=== PATIENT | female | born 1990 | race Caucasian/White ===

== ENCOUNTER 2023-06-13 13:15 | Emergency (ER) | payer BC ==
--- OUTSIDE RECORDS SUMMARY | 2023-06-13 13:19 | XMS REPORT | Continuity of Care Document ---
:1990 Author Organization [facility] t Address [address] [place] [address]. [address] [place] [address] Care Team Providers Name Role Phone MOLLY NIEVES Primary Care Physician Unavailable Molly Nieves Attending Clinician Unavailable DEVAUGHN Attending Clinician Unavailable KAYLENE OSORIO Attending Clinician Unavailable Disha Rush PA-C Attending Clinician Kaylene Osorio MD Attending Clinician DISHA RUSH Attending Clinician Unavailable Doctor Unassigned, [place] Attending Clinician Unavailable Neris Crawford Attending Clinician NERIS AGUILAR Attending Clinician Unavailable Calli_Farzana Attending Clinician Unavailable DEVAUGHN Admitting Clinician Unavailable Jocelyn Admitting Clinician Unavailable Payers Payer Name Policy Type Policy Number Effective Date Expiration Date S chris Blue Cross Blue 6 [id number] 2021 [facility] 00:00:00 [facility] [employer] - [id number] [employer] (PPO) [employer] OF [place] - OUT [id number] 2021 OF STATE 00:00:00 [place] [employer] [id number] ADMINISTRATION - [employer] [facility] - [facility] (PPO) Problems Condition Condition Condition Status Onset Resolution Last Treating Co mments Source Name Details Category Date Date Treatment Clinician Date Disorder Disorder Problem Active [place] of 11-30 da menstruati Menstruati 00:00: Me dical on on 00 Group [id number] Essential Problem Comm on (primary) Spirit hypertensi - [facility] on [facility] [id number] Current Problem Common moderate Spirit episode of - [facility] major [facility] disorder Medical without Center prior episode [id number] Adult BMI Problem Com mon 34.0-34.9 Spirit kg/sq m [facility] [id number] Constipati Problem Com mon on, Spirit unspecifie - CHI d constipati [facility] [id number] Insomnia, Problem Com mon unspecifie Spirit d type [facility] [id number] Anxiety Problem Common [facility] [id number] Vitamin D Problem Comm on deficiency [facility] [id number] Vitamin Problem Commo n B12 [facility] deficiency [facility] [id number] Iron Problem Common deficiency Spirit anemia, - CHI unspecifie [facility] iron [facility] deficiency Medica l anemia Center type No known No known Disease Unive rs active active ity of problems problems [facility] Allergies, Adverse Reactions, Alerts Allergy Allergy Status Severity Reaction(s) Onset Inactive Treating Comm ents Source Name Type Date Date Clinician NO KNOWN Drug Active Univers ALLERGIE Class ity of S [facility] Social History Social Habit Start Date Stop Date Quantity Comments Source History of Common Spirit - Tobacco Use [facility] Sex Assigned At Common Sp teena - [facility] Exposure to Not sure University of SARS-CoV-2 [facility] (event) Branch Tobacco use and 2021-11-25 2021-11-25 Never used Universit y of exposure 00:00:00 00:00:00 [facility] Alcohol intake 2021-11-25 2021-11-25 Current drinker Unive rsity of 00:00:00 00:00:00 of alcohol [facility] (finding) [place] Smoking Status Start Date Stop Date Source Never Smoker [facility] Spirit [facility] Medications Ordered Filled Start Stop Current Ordering Indication Dosage Frequency Signature Comments Components Source Medication Medication Date Date Medication? Clinician (SIG) Name Name Eszopiclone Eszopiclone 2021-10 No 1{table QD Eszopiclon 2 MG 2 MG 0-20 t_immed e 2 MG 00:00: iately_ 00 before_ bedtime } Eszopiclone Eszopiclone 2021-0 No 1{table QD Eszopiclon 2 MG 2 MG 7-20 t_immed e 2 MG 00:00: iately_ 00 before_ bedtime } Eszopiclone Eszopiclone 2021-0 No 1{table QD Eszopiclon 2 MG 2 MG 7-20 t_immed e 2 MG 00:00: iately_ 00 before_ bedtime } Eszopiclone Eszopiclone 2021-0 No 1{table QD Eszopiclon 2 MG 2 MG 7-19 t_immed e 2 MG 00:00: iately_ 00 before_ bedtime } Eszopiclone Eszopiclone 2021-0 No 1{table QD Eszopiclon 2 MG 2 MG 7-19 t_immed e 2 MG 00:00: iately_ 00 before_ bedtime } Eszopiclone Eszopiclone 2021-0 No 1{table QD Eszopiclon 2 MG 2 MG 7-19 t_immed e 2 MG 00:00: iately_ 00 before_ bedtime } Lexapro 20 Lexapro 20 2021-0 No 1{table QD Lexapro 20 MG MG 6-16 t} MG 00:00: 00 Eszopiclone Eszopiclone 2021-0 No 1{table QD Eszopiclon 2 MG 2 MG 6-16 t_immed e 2 MG 00:00: iately_ 00 before_ bedtime } metroNIDAZO 2021-0 Yes [id number] 500mg Take 1 Univers LE 500 mg 2-02 tablet by ity o f tablet 00:00: mouth [place] 00 every 12 Medical (twelve) Branch hours. propranoloL 2021-0 Yes Univer s 10 mg 1-28 ity of tablet 00:00: [place] 00 Medical Branch propranoloL 2021-0 Yes Univer s 10 mg 1-28 ity of tablet 00:00: [place] [facility] buPROPion 2021-0 Yes 150mg Take 150 Uni vers XL 150 mg 1-20 mg by ity of 24 hr 00:00: mouth [place] tablet 00 every Medical morning. Branch buPROPion Yes 150mg Take 150 Uni vers XL 150 mg 1-20 mg by ity of 24 hr 00:00: mouth [place] tablet 00 every Medical morning. Branch Eszopiclone Eszopiclone No 1{table QD 2 MG 2 MG -19 t_immed 00:00: iately_ 00 before_ bedtime } Eszopiclone Eszopiclone No 1{table QD Eszopiclon 2 MG 2 MG -19 t_immed e 2 MG 00:00: iately_ 00 before_ bedtime } Eszopiclone Eszopiclone No 1{table QD Eszopiclon 2 MG 2 MG -19 t_immed e 2 MG 00:00: iately_ 00 before_ bedtime } Eszopiclone Eszopiclone No 1{table QD Eszopiclon 2 MG 2 MG -19 t_immed e 2 MG 00:00: iately_ 00 before_ bedtime } Eszopiclone Eszopiclone 2020-10 No 1{table QD Eszopiclon 1 MG 1 MG 2-02 t_immed e 1 MG 00:00: iately_ 00 before_ bedtime } buPROPion buPROPion 2020-10 No 1{table QD buPROPion HCl ER (XL) HCl ER (XL) 1-03 t_in_th HCl ER 150 MG 150 MG 00:00: e_morni (XL) 150 00 ng} MG buPROPion buPROPion 2020-10 No 1{table QD buPROPion HCl ER (XL) HCl ER (XL) 1-03 t_in_th HCl ER 150 MG 150 MG 00:00: e_morni (XL) 150 00 ng} MG Kenalog Kenalog 2020-10 No 40mg Common (Triamcinol (Triamcinol 0-13 S pirit one) one) 00:00: - [facility] Kenalog Kenalog 2020-10 No 40mg Common (Triamcinol (Triamcinol 0-13 S pirit one) one) 00:00: - [facility] Kenalog Kenalog 2020-10 No 40mg Common (Triamcinol (Triamcinol 0-13 S pirit one) one) 00:00: - [facility] 00 [facility] Bayron Verma 2020-10 No 40mg Common (Triamcinol (Triamcinol 0-13 S pirit one) one) 00:00: - [facility] Bayron Verma 2020-10 No 40mg Common (Triamcinol (Triamcinol 0-13 S pirit one) one) 00:00: - [facility] Bayron Verma 2020-10 No 40mg Common (Triamcinol (Triamcinol 0-13 S pirit one) one) 00:00: - [facility] 00 [facility] Bayron Verma 2020-10 No 40mg Common (Triamcinol (Triamcinol 0-13 S pirit one) one) 00:00: - [facility] Bayron Verma 2020-10 No 40mg Common (Triamcinol (Triamcinol 0-13 S pirit one) one) 00:00: - [facility] 00 [facility] Propranolol Propranolol No 1{table QD Propranolo HCl 10 MG HCl 10 MG 07-17 t} l HCl 10 00:00: MG 00 Phentermine Phentermine 2020- No 1{capsu QD Phentermin HCl 37.5 MG HCl 37.5 MG 06-1116 le} e HCl 37.5 00:00: 00:00 MG 00 :00 Phentermine Phentermine 2020- No 1{capsu QD Phentermin HCl 37.5 MG HCl 37.5 MG 816 le} e HCl 37.5 00:00: 00:00 MG 00 :00 Linzess 72 Linzess 72 2020- No QD Linzess 72 MCG MCG 05-10 08-15 MCG 00:00: 00:00 00 :00 Lomaira Lomaira 2019- No Molly 1 tablet Common 07-1116 Nieves before Spirit 00:00: 00:00 meals - [facility]I 00 :00 [facility] Wellbutrin Wellbutrin 2019-0 Yes Molly 1 tablet Common XL XL 7-15 Nieves in the Spirit 00:00: morning - [facility] Vitamin B12 Vitamin B12 2019-0 No 1000ug Common (Cyanocobal (Cyanocobal 7-15 S pirit hernadez) hernadez) 00:00: - [facility] 00 [facility] Vitamin B12 Vitamin B12 2019-0 No 1000ug Common (Cyanocobal (Cyanocobal 7-15 S pirit hernadez) hernadez) 00:00: - [facility] 00 [facility] Vitamin B12 Vitamin B12 2019-0 No 1000ug Common (Cyanocobal (Cyanocobal 7-15 S pirit hernadez) hernadez) 00:00: - [facility] Vitamin B12 Vitamin B12 2019-0 No 1000ug Common (Cyanocobal (Cyanocobal 7-15 S pirit hernadez) hernadez) 00:00: - [facility] Vitamin B12 Vitamin B12 2019-0 No 1000ug Common (Cyanocobal (Cyanocobal 7-15 S pirit hernadez) hernadez) 00:00: - [facility] Vitamin B12 Vitamin B12 2019-0 No 1000ug Common (Cyanocobal (Cyanocobal 7-15 S pirit hernadez) hernadez) 00:00: - [facility] Vitamin B12 Vitamin B12 2019-0 No 1000ug Common (Cyanocobal (Cyanocobal 7-15 S pirit hernadez) hernadez) 00:00: - [facility] Vitamin B12 Vitamin B12 2019-0 No 1000ug Common (Cyanocobal (Cyanocobal 7-15 S pirit hernadez) hernadez) 00:00: - [facility] Vitamin B12 Vitamin B12 2019-0 No 1000ug Common (Cyanocobal (Cyanocobal 2-04 S pirit hernadez) hernadez) 00:00: - [facility] Vitamin B12 Vitamin B12 2019-0 No 1000ug Common (Cyanocobal (Cyanocobal 2-04 S pirit hernadez) hernadez) 00:00: - [facility] Vitamin B12 Vitamin B12 2019-0 No 1000ug Common (Cyanocobal (Cyanocobal 2-04 S pirit hernadez) hernadez) 00:00: - [facility] Vitamin B12 Vitamin B12 2019-0 No 1000ug Common (Cyanocobal (Cyanocobal 2-04 S pirit hernadez) hernadez) 00:00: - [facility] Vitamin B12 Vitamin B12 2019-0 No 1000ug Common (Cyanocobal (Cyanocobal 2-04 S pirit hernadez) hernadez) 00:00: - [facility] Vitamin B12 Vitamin B12 2019-0 No 1000ug Common (Cyanocobal (Cyanocobal 2-04 S pirit hernadez) hernadez) 00:00: - [facility] Vitamin B12 Vitamin B12 2019-0 No 1000ug Common (Cyanocobal (Cyanocobal 2-04 S pirit hernadez) hernadez) 00:00: - [facility] Vitamin B12 Vitamin B12 2019-0 No 1000ug Common (Cyanocobal (Cyanocobal 2-04 S pirit hernadez) hernadez) 00:00: - [facility] Kenalog Kenalog 2018- No 40mg Common (Triamcinol (Triamcinol 2-18 S pirit one) one) 00:00: - [facility] Kenalog Kenalog 2018- No 40mg Common (Triamcinol (Triamcinol 2-18 S pirit one) one) 00:00: - [facility] Kenalog Kenalog 2018- No 40mg Common (Triamcinol (Triamcinol 2-18 S pirit one) one) 00:00: - [facility] Kenalog Kenalog 2018-1 No 40mg Common (Triamcinol (Triamcinol 2-18 S pirit one) one) 00:00: - [facility] Kenalog Kenalog 2018- No 40mg Common (Triamcinol (Triamcinol 2-18 S pirit one) one) 00:00: - [facility] Kenalog Kenalog 2018- No 40mg Common (Triamcinol (Triamcinol 2-18 S pirit one) one) 00:00: - [facility] 00 [facility] Kenalog Kenalog 2018- No 40mg Common (Triamcinol (Triamcinol 2-18 S pirit one) one) 00:00: - [facility] 00 [facility] Kenalog Kenalog 2018-1 No 40mg Common (Triamcinol (Triamcinol 2-18 S pirit one) one) 00:00: - [facility] 00 [facility] xRocephin 1 xRocephin 1 2018-0 No 1g Common gm gm 8-23 Spirit 00:00: - [facility] xRocephin 1 xRocephin 1 2018-0 No 1g Common gm gm 8-23 Spirit 00:00: - [facility] xRocephin 1 xRocephin 1 2018-0 No 1g Common gm gm 8-23 Spirit 00:00: - [facility] xRocephin 1 xRocephin 1 2018-0 No 1g Common gm gm 8-23 Spirit 00:00: - [facility] xRocephin 1 xRocephin 1 2018-0 No 1g Common gm gm 8-23 Spirit 00:00: - [facility] xRocephin 1 xRocephin 1 2018-0 No 1g Common gm gm 8-23 Spirit 00:00: - [facility] xRocephin 1 xRocephin 1 2018-0 No 1g Common gm gm 8-23 Spirit 00:00: - [facility] xRocephin 1 xRocephin 1 2018-0 No 1g Common gm gm 8-23 Spirit 00:00: - [facility] Vitamin B12 Vitamin B12 2018-0 No 1000ug Common (Cyanocobal (Cyanocobal 8-13 S pirit hernadez) hernadez) 00:00: - [facility] Vitamin B12 Vitamin B12 2018-0 No 1000ug Common (Cyanocobal (Cyanocobal 8-13 S pirit hernadez) hernadez) 00:00: - [facility] Vitamin B12 Vitamin B12 2018-0 No 1000ug Common (Cyanocobal (Cyanocobal 8-13 S pirit hernadez) hernadez) 00:00: - [facility] Vitamin B12 Vitamin B12 2018-0 No 1000ug Common (Cyanocobal (Cyanocobal 8-13 S pirit hernadez) hernadez) 00:00: - [facility] Vitamin B12 Vitamin B12 2018-0 No 1000ug Common (Cyanocobal (Cyanocobal 8-13 S pirit hernadez) hernadez) 00:00: - [facility] Vitamin B12 Vitamin B12 2018-0 No 1000ug Common (Cyanocobal (Cyanocobal 8-13 S pirit hernadez) hernadez) 00:00: - [facility] Vitamin B12 Vitamin B12 2018-0 No 1000ug Common (Cyanocobal (Cyanocobal 8-13 S pirit hernadez) hernadez) 00:00: - [facility] Vitamin B12 Vitamin B12 2018-0 No 1000ug Common (Cyanocobal (Cyanocobal 8-13 S pirit hernadez) hernadez) 00:00: - [facility] 00 [facility] multivitami multivitami No multivitam [place] take one n take one in take da tablet once tablet once one tablet Medical a day a day once a day Group Magnesium Magnesium Yes Molly 1 tablet Common Nieves with a Spirit meal [facility] Vitamin D Vitamin D Yes Molly 1 tablet Common (Cholecalci (Cholecalci Nieves Spirit ferol) ferol) [facility] Tylenol Tylenol Yes Molly 1 tablet Com mon Nieves as needed Spirit [facility] Trulance 3 Trulance 3 No 1{table QD Trulance 3 MG MG t} MG Magnesium Magnesium No 1{table QD Magnesium 30 MG 30 MG t_with_ 30 MG a_meal} Doxycycline Doxycycline No Doxycyclin Hyclate 100 Hyclate 100 e Hyclate MG MG 100 MG Tylenol 325 Tylenol 325 No 1{table 6xD Tylenol MG MG t_as_ne 325 MG eded} Magnesium Magnesium No 1{table QD Magnesium 30 MG 30 MG t_with_ 30 MG a_meal} Doxycycline Doxycycline No Doxycyclin Hyclate 100 Hyclate 100 e Hyclate MG MG 100 MG Trulance 3 Trulance 3 No 1{table QD Trulance 3 MG MG t} MG Tylenol 325 Tylenol 325 No 1{table 6xD Tylenol MG MG t_as_ne 325 MG eded} Magnesium Magnesium No 1{table QD Magnesium 30 MG 30 MG t_with_ 30 MG a_meal} Propranolol Propranolol No 1{table QD Propranolo HCl 10 MG HCl 10 MG t} l HCl 10 MG Tylenol 325 Tylenol 325 No 1{table 6xD Tylenol MG MG t_as_ne 325 MG eded} Magnesium Magnesium No 1{table QD Magnesium 30 MG 30 MG t_with_ 30 MG a_meal} Trulance 3 Trulance 3 No 1{table QD Trulance 3 MG MG t} MG Propranolol Propranolol No 1{table QD Propranolo HCl 10 MG HCl 10 MG t} l HCl 10 MG Tylenol 325 Tylenol 325 No 1{table 6xD Tylenol MG MG t_as_ne 325 MG eded} Doxycycline Doxycycline No Doxycyclin Hyclate 100 Hyclate 100 e Hyclate MG MG 100 MG Propranolol Propranolol No Propranolo HCl 10 MG HCl 10 MG l HCl 10 MG Propranolol Propranolol No 1{table QD Propranolo HCl 10 MG HCl 10 MG t} l HCl 10 MG Magnesium Magnesium No 1{table QD Magnesium 30 MG 30 MG t_with_ 30 MG a_meal} Doxycycline Doxycycline No Doxycyclin Hyclate 100 Hyclate 100 e Hyclate MG MG 100 MG Trulance 3 Trulance 3 No 1{table QD Trulance 3 MG MG t} MG Tylenol 325 Tylenol 325 No 1{table 6xD Tylenol MG MG t_as_ne 325 MG eded} Propranolol Propranolol No Propranolo HCl 10 MG HCl 10 MG l HCl 10 MG Propranolol Propranolol No 1{table QD Propranolo HCl 10 MG HCl 10 MG t} l HCl 10 MG Magnesium Magnesium No 1{table QD Magnesium 30 MG 30 MG t_with_ 30 MG a_meal} Doxycycline Doxycycline No Doxycyclin Hyclate 100 Hyclate 100 e Hyclate MG MG 100 MG Trulance 3 Trulance 3 No 1{table QD Trulance 3 MG MG t} MG Tylenol 325 Tylenol 325 No 1{table 6xD Tylenol MG MG t_as_ne 325 MG eded} Propranolol Propranolol No Propranolo HCl 10 MG HCl 10 MG l HCl 10 MG Doxycycline Doxycycline No Doxycyclin Hyclate 100 Hyclate 100 e Hyclate MG MG 100 MG Trulance 3 Trulance 3 No 1{table QD Trulance 3 MG MG t} MG Magnesium Magnesium No 1{table QD Magnesium 30 MG 30 MG t_with_ 30 MG a_meal} Tylenol 325 Tylenol 325 No 1{table 6xD Tylenol MG MG t_as_ne 325 MG eded} buPROPion buPROPion No 1{table QD buPROPion HCl ER (XL) HCl ER (XL) t_in_th HCl ER 150 MG 150 MG e_morni (XL) 150 ng} MG buPROPion buPROPion No buPROPion HCl ER (XL) HCl ER (XL) HCl ER 150 MG 150 MG (XL) 150 MG Propranolol Propranolol No QD Propranolo HCl 10 MG HCl 10 MG l HCl 10 MG Doxycycline Doxycycline No Hyclate 100 Hyclate 100 MG MG Trulance 3 Trulance 3 No 1{table QD MG MG t} Tylenol 325 Tylenol 325 No 1{table 6xD MG MG t_as_ne eded} buPROPion buPROPion No 1{table QD HCl ER (XL) HCl ER (XL) t_in_th 150 MG 150 MG e_morni ng} Propranolol Propranolol No HCl 10 MG HCl 10 MG buPROPion buPROPion No HCl ER (XL) HCl ER (XL) 150 MG 150 MG Propranolol Propranolol No QD HCl 10 MG HCl 10 MG Magnesium Magnesium No 1{table QD 30 MG 30 MG t_with_ a_meal} Tylenol 325 Tylenol 325 No 1{table 6xD Tylenol MG MG t_as_ne 325 MG eded} buPROPion buPROPion No 1{table QD buPROPion HCl ER (XL) HCl ER (XL) t_in_th HCl ER 150 MG 150 MG e_morni (XL) 150 ng} MG Trulance 3 Trulance 3 No 1{table QD Trulance 3 MG MG t} MG Doxycycline Doxycycline No Doxycyclin Hyclate 100 Hyclate 100 e Hyclate MG MG 100 MG Propranolol Propranolol No Propranolo HCl 10 MG HCl 10 MG l HCl 10 MG buPROPion buPROPion No buPROPion HCl ER (XL) HCl ER (XL) HCl ER 150 MG 150 MG (XL) 150 MG Magnesium Magnesium No 1{table QD Magnesium 30 MG 30 MG t_with_ 30 MG a_meal} Magnesium Magnesium No 1{table QD Magnesium 30 MG 30 MG t_with_ 30 MG a_meal} Doxycycline Doxycycline No Doxycyclin Hyclate 100 Hyclate 100 e Hyclate MG MG 100 MG buPROPion buPROPion No 1{table QD buPROPion HCl ER (XL) HCl ER (XL) t_in_th HCl ER 300 MG 300 MG e_morni (XL) 300 ng} MG Trulance 3 Trulance 3 No 1{table QD Trulance 3 MG MG t} MG Tylenol 325 Tylenol 325 No 1{table 6xD Tylenol MG MG t_as_ne 325 MG eded} buPROPion buPROPion No buPROPion HCl ER (XL) HCl ER (XL) HCl ER 150 MG 150 MG (XL) 150 MG Propranolol Propranolol No Propranolo HCl 10 MG HCl 10 MG l HCl 10 MG Magnesium Magnesium No 1{table QD Magnesium 30 MG 30 MG t_with_ 30 MG a_meal} Doxycycline Doxycycline No Doxycyclin Hyclate 100 Hyclate 100 e Hyclate MG MG 100 MG buPROPion buPROPion No 1{table QD buPROPion HCl ER (XL) HCl ER (XL) t_in_th HCl ER 300 MG 300 MG e_morni (XL) 300 ng} MG Trulance 3 Trulance 3 No 1{table QD Trulance 3 MG MG t} MG Tylenol 325 Tylenol 325 No 1{table 6xD Tylenol MG MG t_as_ne 325 MG eded} buPROPion buPROPion No buPROPion HCl ER (XL) HCl ER (XL) HCl ER 150 MG 150 MG (XL) 150 MG Propranolol Propranolol No Propranolo HCl 10 MG HCl 10 MG l HCl 10 MG Tylenol 325 Tylenol 325 No 1{table 6xD Tylenol MG MG t_as_ne 325 MG eded} Propranolol Propranolol No Propranolo HCl 10 MG HCl 10 MG l HCl 10 MG buPROPion buPROPion No buPROPion HCl ER (XL) HCl ER (XL) HCl ER 150 MG 150 MG (XL) 150 MG Doxycycline Doxycycline No Doxycyclin Hyclate 100 Hyclate 100 e Hyclate MG MG 100 MG Propranolol Propranolol No QD Propranolo HCl 10 MG HCl 10 MG l HCl 10 MG buPROPion buPROPion No 1{table QD buPROPion HCl ER (XL) HCl ER (XL) t_in_th HCl ER 150 MG 150 MG e_morni (XL) 150 ng} MG Trulance 3 Trulance 3 No 1{table QD Trulance 3 MG MG t} MG Magnesium Magnesium No 1{table QD Magnesium 30 MG 30 MG t_with_ 30 MG a_meal} Tylenol 325 Tylenol 325 No 1{table 6xD Tylenol MG MG t_as_ne 325 MG eded} Propranolol Propranolol No Propranolo HCl 10 MG HCl 10 MG l HCl 10 MG Lexapro 20 Lexapro 20 No 1{table QD Lexapro 20 MG MG t} MG Magnesium Magnesium No 1{table QD Magnesium 30 MG 30 MG t_with_ 30 MG a_meal} buPROPion buPROPion No buPROPion HCl ER (XL) HCl ER (XL) HCl ER 150 MG 150 MG (XL) 150 MG Doxycycline Doxycycline No Doxycyclin Hyclate 100 Hyclate 100 e Hyclate MG MG 100 MG Propranolol Propranolol No QD Propranolo HCl 10 MG HCl 10 MG l HCl 10 MG buPROPion buPROPion No 1{table QD buPROPion HCl ER (XL) HCl ER (XL) t_in_th HCl ER 150 MG 150 MG e_morni (XL) 150 ng} MG Trulance 3 Trulance 3 No 1{table QD Trulance 3 MG MG t} MG Tylenol 325 Tylenol 325 No 1{table 6xD Tylenol MG MG t_as_ne 325 MG eded} Doxycycline Doxycycline No Doxycyclin Hyclate 100 Hyclate 100 e Hyclate MG MG 100 MG Trulance 3 Trulance 3 No 1{table QD Trulance 3 MG MG t} MG buPROPion buPROPion No buPROPion HCl ER (XL) HCl ER (XL) HCl ER 150 MG 150 MG (XL) 150 MG buPROPion buPROPion No 1{table QD buPROPion HCl ER (XL) HCl ER (XL) t_in_th HCl ER 150 MG 150 MG e_morni (XL) 150 ng} MG Propranolol Propranolol No Propranolo HCl 10 MG HCl 10 MG l HCl 10 MG Lexapro 20 Lexapro 20 No 1{table QD Lexapro 20 MG MG t} MG Magnesium Magnesium No 1{table QD Magnesium 30 MG 30 MG t_with_ 30 MG a_meal} Lexapro 20 Lexapro 20 No 1{table QD Lexapro 20 MG MG t} MG Tylenol 325 Tylenol 325 No 1{table 6xD Tylenol MG MG t_as_ne 325 MG eded} Doxycycline Doxycycline No Doxycyclin Hyclate 100 Hyclate 100 e Hyclate MG MG 100 MG Trulance 3 Trulance 3 No 1{table QD Trulance 3 MG MG t} MG buPROPion buPROPion No buPROPion HCl ER (XL) HCl ER (XL) HCl ER 150 MG 150 MG (XL) 150 MG buPROPion buPROPion No 1{table QD buPROPion HCl ER (XL) HCl ER (XL) t_in_th HCl ER 150 MG 150 MG e_morni (XL) 150 ng} MG Propranolol Propranolol No Propranolo HCl 10 MG HCl 10 MG l HCl 10 MG Lexapro 20 Lexapro 20 No 1{table QD Lexapro 20 MG MG t} MG Magnesium Magnesium No 1{table QD Magnesium 30 MG 30 MG t_with_ 30 MG a_meal} Lexapro 20 Lexapro 20 No 1{table QD Lexapro 20 MG MG t} MG Lexapro 20 Lexapro 20 No 1{table QD Lexapro 20 MG MG t} MG Tylenol 325 Tylenol 325 No 1{table 6xD Tylenol MG MG t_as_ne 325 MG eded} Magnesium Magnesium No 1{table QD Magnesium 30 MG 30 MG t_with_ 30 MG a_meal} buPROPion buPROPion No 1{table QD buPROPion HCl ER (XL) HCl ER (XL) t_in_th HCl ER 150 MG 150 MG e_morni (XL) 150 ng} MG Doxycycline Doxycycline No Doxycyclin Hyclate 100 Hyclate 100 e Hyclate MG MG 100 MG Trulance 3 Trulance 3 No 1{table QD Trulance 3 MG MG t} MG Vitamin D Vitamin D No 1{table QD Vitamin D (Cholecalci (Cholecalci t} (Cholecalc ferol) 1000 ferol) 1000 iferol) UNIT UNIT 1000 UNIT Wellbutrin Wellbutrin No 1{table QD Wellbutrin XL 300 MG XL 300 MG t_in_th XL 300 MG e_morni ng} Tylenol 325 Tylenol 325 No 1{table 6xD Tylenol MG MG t_as_ne 325 MG eded} Cefdinir Cefdinir No Cefdinir 300 MG 300 MG 300 MG Lomaira 8 Lomaira 8 No 1{table TID Lomaira 8 MG MG t_befor MG e_meals } Lactulose Lactulose No 15{ml} QD Lactulose 10 GM/15ML 10 GM/15ML 10 GM/15ML Magnesium Magnesium No 1{table QD Magnesium 30 MG 30 MG t_with_ 30 MG a_meal} Trulance 3 Trulance 3 No 1{table QD Trulance 3 MG MG t} MG Magnesium Magnesium No 1{table QD Magnesium 30 MG 30 MG t_with_ 30 MG a_meal} Doxycycline Doxycycline No Doxycyclin Hyclate 100 Hyclate 100 e Hyclate MG MG 100 MG Tylenol 325 Tylenol 325 No 1{table 6xD Tylenol MG MG t_as_ne 325 MG eded} Immunizations Ordered Immunization Filled Immunization Date Status Commen ts Source Name Name Bayron Verma 2021-08-07 [facility]olone[facility] 10:44:00 - [facility] Afluria Afluria 2021-08-07 [facility] 10:19[facility]00 [facility] Afluria Afluria 2021-08-07 [facility] Afluria Afluria 2021-08-07 [facility] 10:19[facility]00 [facility] Afluria Afluria 2021-08-07 [facility] 10:19[facility]00 [facility] Afluria Afluria 2021-08-07 [facility] 10:19[facility]00 [facility] Afluria Afluria 2021-08-07 [facility] Afluria Afluria 2021-08-07 [facility] Afluria Afluria 2021-08-07 [facility] 10:19[facility]00 [facility] Afluria Afluria 2021-08-07 [facility] Afluria Afluria 2021-08-07 [facility] Afluria Afluria 2021-08-07 [facility] Afluria Afluria 2021-08-07 [facility] Afluria Afluria 2021-08-07 [facility] Afluria Afluria 2019-07-11 Completed [facility] [facility] 11:47:00 - [facility] Afluria Afluria 2019-07-11 Completed [facility] 11:47[facility] Afluria Afluria 2019-07-11 Completed [facility] 11[facility]47[facility] Afluria Afluria 2019-07-11 Completed [facility] Afluria Afluria 2019-07-11 Completed [facility] Afluria Afluria 2019-07-11 Completed [facility] - [facility] Afluria Afluria 2019-07-11 Completed [facility] Afluria Afluria 2019-07-11 Completed [facility] - [facility] Afluria Afluria 2019-07-11 Completed [facility] Afluria Afluria 2019-07-11 Completed [facility] Afluria Afluria 2019-07-11 Completed [facility] - [facility] Afluria Afluria 2019-07-11 Completed [facility] Afluria Afluria 2019-07-11 Completed [facility] - [facility] Afluria Afluria 2019-07-11 Completed [facility] - [facility] Afluria Afluria 2019-07-11 Completed [facility] - [facility] Afluria Afluria 2019-07-11 Completed [facility] - [facility] Afluria Afluria 2019-07-11 Completed [facility] - [facility] Afluria Afluria 2019-07-11 Completed [facility] - [facility] Afluria Afluria 2019-07-11 Completed [facility] 00:: [facility] Vitamin B12 Vitamin B12 2019-05-09 Completed [facility] (Cyanocobalamin) (Cyanocobalamin) 10:: [facility] Vitamin B12 Vitamin B12 2019-05-09 Completed [facility] (Cyanocobalamin) (Cyanocobalamin) 10:: [facility] Vitamin B12 Vitamin B12 2019-05-09 Completed [facility] (Cyanocobalamin) (Cyanocobalamin) 10:: [facility] Vitamin B12 Vitamin B12 2019-05-09 Completed [facility] (Cyanocobalamin) (Cyanocobalamin) 10:: [facility] Vitamin B12 Vitamin B12 2019-05-09 Completed [facility] (Cyanocobalamin) (Cyanocobalamin) 10:: [facility] Vitamin B12 Vitamin B12 2019-05-09 Completed [facility] (Cyanocobalamin) (Cyanocobalamin) 10:: [facility] Vitamin B12 Vitamin B12 2018-11-29 Completed [facility] (Cyanocobalamin) (Cyanocobalamin) 10:: [facility] Vitamin B12 Vitamin B12 2018-11-29 Completed [facility] (Cyanocobalamin) (Cyanocobalamin) 10:: [facility] Vitamin B12 Vitamin B12 2018-11-29 Completed [facility] (Cyanocobalamin) (Cyanocobalamin) 10:: [facility] Vitamin B12 Vitamin B12 2018-11-29 Completed [facility] (Cyanocobalamin) (Cyanocobalamin) 10:: [facility] Vitamin B12 Vitamin B12 2018-11-29 Completed [facility] (Cyanocobalamin) (Cyanocobalamin) 10:: [facility] Vitamin B12 Vitamin B12 2018-11-29 Completed [facility] (Cyanocobalamin) (Cyanocobalamin) 10:: [facility] Kenalog Kenalog 2018-10-12 Completed [facility] (Triamcinolone) (Triamcinolone) 09:10:00 - [facility] 2018-10-12 [facility] (Triamcinolone) (Triamcinolone) 09:10:00 - I [facility] 2018-10-12 Completed [facility] (Triamcinolone) (Triamcinolone) 09:10:00 - I [facility] 2018-10-12 Completed [facility] (Triamcinolone) (Triamcinolone) 09:10:00 - I [facility] 2018-10-12 Completed [facility] (Triamcinolone) (Triamcinolone) 09:10:00 - [facility] 2018-10-12 Completed [facility] (Triamcinolone) (Triamcinolone) 09:10:00 - [facility] xRocephin 1 gm xRocephin 1 gm 2018-06-17 Completed [facility] 09:13:00 - [facility] xRocephin 1 gm xRocephin 1 gm 2018-06-17 Completed [facility] 09:13:00 - [facility] xRocephin 1 gm xRocephin 1 gm 2018-06-17 Completed [facility] 09:13:00 - [facility] xRocephin 1 gm xRocephin 1 gm 2018-06-17 Completed [facility] 09:13:00 - [facility] xRocephin 1 gm xRocephin 1 gm 2018-06-17 Completed [facility] 09:13:00 - [facility] xRocephin 1 gm xRocephin 1 gm 2018-06-17 Completed [facility] 09:13:00 [facility] Vitamin B12 Vitamin B12 2018-06-07 Completed [facility] (Cyanocobalamin) (Cyanocobalamin) 14:31:00 [facility] Vitamin B12 Vitamin B12 2018-06-07 Completed [facility] (Cyanocobalamin) (Cyanocobalamin) 14:31:00 [facility] Vitamin B12 Vitamin B12 2018-06-07 Completed [facility] (Cyanocobalamin) (Cyanocobalamin) 14:31:00 [facility] Vitamin B12 Vitamin B12 2018-06-07 Completed [facility] (Cyanocobalamin) (Cyanocobalamin) 14:31:00 [facility] Vitamin B12 Vitamin B12 2018-06-07 Completed [facility] (Cyanocobalamin) (Cyanocobalamin) 14:31:00 [facility] Vitamin B12 Vitamin B12 2018-06-07 Completed [facility] (Cyanocobalamin) (Cyanocobalamin) 14:31:00 [facility] Vital Signs Vital Name Observation Time Observation Value Comments Source height 2022-08-14 13:00:00 67.5 [in_i] [facility] weight 2022-08-14 13:00:00 216 [lb_av] [facility] temperature 2022-08-14 13:00:00 98.0 [degF] [facility] bmi 2022-08-14 13:00:00 33.33 kg/m2 [facility] oximetry 2022-08-14 13:00:00 99 % [facility] respiratory rate 2022-08-14 13:00:00 18 /min Comm [facility] blood pressure 2022-08-14 13:00:00 130 mm[Hg] [facility] systolic [facility] blood pressure 2022-08-14 13:00:00 75 mm[Hg] [facility] - diastolic [facility] height 2022-05-14 16:40:00 68 [in_i] [facility] weight 2022-05-14 16:40:00 186 [lb_av] [facility] temperature 2022-05-14 16:40:00 97 [degF] [facility] bmi 2022-05-14 16:40:00 28.28 kg/m2 [facility] blood pressure 2022-05-14 16:40:00 122 mm[Hg] [facility] systolic [facility] blood pressure 2022-05-14 16:40:00 70 mm[Hg] [facility] - diastolic [facility] height 2022-04-10 07:50:00 68 [in_i] [facility] weight 2022-04-10 07:50:00 185 [facility] temperature 2022-04-10 07:50:00 98 [degF] [facility] bmi 2022-04-10 07:50:00 28.13 kg/m2 [facility] blood pressure 2022-04-10 07:50:00 125 mm[Hg] [facility] systolic [facility] blood pressure 2022-04-10 07:50:00 75 mm[Hg] [facility] - diastolic [facility] height 2022-01-10 13:40:00 68 [in_i] [facility] weight 2022-01-10 13:40:00 184 [lb_av] [facility] bmi 2022-01-10 13:40:00 27.97 kg/m2 [facility] Systolic blood 2021-11-25 15:26:00 121 mm[Hg] [facility] Diastolic blood 2021-11-25 15:26:00 84 mm[Hg] [facility] Heart rate 2021-11-25 15:26:00 71 /min [facility] Body temperature 2021-11-25 15:26:00 36.67 [facility] 2021-11-25 15:26:00 18 /[facility] height 2021-11-25 15:26:[address] [facility] Body weight 2021-11-25 15:26:[address] [facility] BMI 2021-11-25 15:26:00 29.13 kg/m2 [facility] height 2021-11-13 11:30:00 68 [in_i] [facility] weight 2021-11-13 11:30:00 184 [lb_av] [facility] temperature 2021-11-13 11:30:00 98 [degF] [facility] bmi 2021-11-13 11:30:00 27.97 kg/m2 [facility] blood pressure 2021-11-13 11:30:00 123 mm[Hg] [facility] systolic [facility] blood pressure 2021-11-13 11:30:00 82 mm[Hg] [facility] - diastolic [facility] height 2021-09-26 13:20:00 68 [in_i] [facility] weight 2021-09-26 13:20:00 192.1 [lb_av] Common [facility] temperature 2021-09-26 13:20:00 97.6 [degF] [facility] bmi 2021-09-26 13:20:00 29.21 kg/m2 [facility] oximetry 2021-09-26 13:20:00 100 % [facility] respiratory rate 2021-09-26 13:20:00 16 /min Comm [facility] blood pressure 2021-09-26 13:20:00 129 mm[Hg] [facility] systolic [facility] blood pressure 2021-09-26 13:20:00 87 mm[Hg] [facility] diastolic [facility] height 2021-08-28 15:40:00 68 [in_i] [facility] weight 2021-08-28 15:40:00 195 [lb_av] [facility] temperature 2021-08-28 15:40:00 98 [degF] [facility] bmi 2021-08-28 15:40:00 29.65 kg/m2 [facility] - [facility] blood pressure 2021-08-28 15:40:00 130 mm[Hg] [facility] blood pressure 2021-08-28 15:40:00 72 mm[Hg] [facility] diastolic [facility] height 2021-08-07 10:00:00 68 [in_i] [facility] weight 2021-08-07 10:00:00 195.7 [lb_av] Common [facility] temperature 2021-08-07 10:00:00 97.6 [degF] [facility] bmi 2021-08-07 10:00:00 29.75 kg/m2 Common S [facility] oximetry 2021-08-07 10:00:00 100 % [facility] respiratory rate 2021-08-07 10:00:00 16 /min Comm on [facility] blood pressure 2021-08-07 10:00:00 132 mm[Hg] [facility] systolic [facility] blood pressure 2021-08-07 10:00:00 83 mm[Hg] Common [facility] - diastolic [facility] height 2021-07-17 10:40:00 68 [in_i] Common [facility] weight 2021-07-17 10:40:00 194.3 [lb_av] [facility] temperature 2021-07-17 10:40:00 97.5 [degF] [facility] S pirit [facility] bmi 2021-07-17 10:40:00 29.54 kg/m2 Common S [facility] oximetry 2021-07-17 10:40:00 100 % Common S [facility] respiratory rate 2021-07-17 10:40:00 17 /min Comm on [facility] blood pressure 2021-07-17 10:40:00 149 mm[Hg] Common [facility] - systolic [facility] blood pressure 2021-07-17 10:40:00 96 mm[Hg] Common [facility] - diastolic [facility] weight 2021-06-11 11:00:00 195 [lb_av] [facility] temperature 2021-06-11 11:00:00 98 [degF] [facility] bmi 2021-06-11 11:00:00 29.65 kg/m2 [facility] height 2021-06-11 11:00:00 68 [in_i] [facility] height 2021-05-10 15:40:00 68 [in_i] [facility] weight 2021-05-10 15:40:00 198.8 [lb_av] [facility] temperature 2021-05-10 15:40:00 97.4 [degF] [facility] bmi 2021-05-10 15:40:00 30.22 kg/m2 [facility] oximetry 2021-05-10 15:40:00 100 % [facility] respiratory rate 2021-05-10 15:40:00 16 /min Comm on [facility] blood pressure 2021-05-10 15:40:00 125 mm[Hg] [facility] blood pressure 2021-05-10 15:40:00 78 mm[Hg] [facility] BP Diastolic 2018-11-30 00:00:00 89 mm[Hg] [facility] Height 2018-11-30 00:00:00 67 [in_i] [facility] BMI (Body Mass 2018-11-30 00:00:00 34.5 kg/m2 [facility] BP Systolic 2018-11-30 00:00:00 129 mm[Hg] [facility] Body Weight 2018-11-30 00:00:00 220 [lb_av] [facility] Procedures Procedure Date / Time Performing Clinician Source Performed US, transvaginal 2018-11-30 00:00:00 Elva Beasley edical Group Extraction of [place] 2017-11-26 00:00:00 Daniel Aguilar [facility] Plan of Care Planned Activity Planned Date Details Comments Source Diagnostic Test 2018-11-30 CBC w/ auto diff [facility] Pending 00:00:00 [code = CBC w/ Group auto diff] Diagnostic Test 2018-11-30 beta-HCG, Elva Me dical Pending 00:00:00 quantitative, Group serum or plasma [code = beta-HCG, quantitative, serum or plasma] Encounters Start End Encounter Admission Attending Care Care Encounter Source Date/Time Date/Time Type Type Clinicians Facility Department ID 2022-09-02 Outpatient Nieves, STLMLC [facility] [id number] Common 14:51:00 Molly [id number] [facility] 2022-08-12 Out[facility] [id number] Common 10:49:00 Molly [id number] [facility] 2021-11-20 Outpatient Nieves, STLMLC [facility] [id number] Common 14:29:49 Molly [id number] [facility] 2021-11-20 Outpatient Nieves, STLMLC [facility] [id number] Common 14:07:52 Molly [id number] [facility] 2021-11-20 Outpatient Nieves, STLMLC [facility] [id number] Common 14:00:24 Molly [id number] [facility] 2021-11-20 Outpatient Nieves, STLMLC [facility] [id number] Common 13:38:41 Molly [id number] [facility] 2021-11-20 Outpatient Nieves, STLMLC [facility] [id number] Common 13:30:36 Molly [id number] [facility] 2021-11-20 Outpatient Nieves, STLMLC [facility] [id number] Common 13:27:12 Molly [id number] [facility] 2022-08-14 2022-08-14 PREV VISIT ST[facility] [id number] Common 00:00:00 00:00:00 EST AGE [facility] 18-39 [facility] 2022-05-30 2022-05-30 Outpatient DICLEMENTE_ [facility] [id number] [place] 00:00:00 00:00:00 BARTOLO Randy da [facility] 2022-05-26 2022-05-26 Outpatient KAYLENE OCHOA [facility] [id number] Univers 13:30:00 13:30:00 ity [facility] 2022-05-14 2022-05-14 OFFICE STLMLC STLMLC [id number] Co mmon 00:00:00 00:00:00 VISIT [facility] ESTAB PT - CHI LEVEL 4 [facility] 2022-05-14 2022-05-14 (WEB) STLMLC STLMLC [id number] Co mmon 00:00:00 00:00:00 [facility] 2022-05-13 2022-05-13 (WEB) STLMLC STLMLC [id number] Co mmon 00:00:00 00:00:00 [facility] 2022-04-10 2022-04-10 OFFICE STLMLC STLMLC [id number] Co mmon 00:00:00 00:00:00 [facility]IT [facility] ESTAB PT - CHI LEVEL 4 [facility] 2022-04-04 2022-04-04 (TEL) STLMLC STLMLC [id number] Co mmon 00:00:00 00:00:00 [facility] 2022-01-10 2022-01-10 OFFICE STLMLC STLMLC [id number] Co mmon 00:00:00 00:00:00 VISIT EST Spir it PT LEVEL 3 - [facility] 2022-01-09 2022-01-09 (TEL) STLMLC STLMLC [id number] Co mmon 00:00:00 00:00:00 [facility] 2021-11-27 2021-11-27 Marcelino Rush [facility] [id number] Univers 00:00:00 00:00:00 Management Disha LION [id number] itDeena [id number] Suri DUBON [id number] Fl dical [address] 2021-11-25 2021-11-25 Office Kaylene Osorio Wilfrid [facility] [id number] Univers 09:30:00 09:53:26 Visit Disha Rush [id number] ity [facility] [id number] [place] PROFESS[place] [phone] Fl dical NAL [address] [place] [address] 2021-11-25 2021-11-25 Outpatient Lex RUSH [facility] [id number] Univers 09:30:00 09:53:26 DISHA sheldon [facility] 2021-11-25 2021-11-25 Outpatient Lex RUSH [facility] [id number] Univers 09:30:00 09:30:00 DISHA [facility] 2021-11-25 2021-11-25 Orders Doctor RAMSAY [id number] Univers 00:00:00 00:00:00 Only Unassigned, TAYLA [id number] ity [facility] [id number] Josue as [phone] [address] 2021-11-13 2021-11-13 OFFICE STLMLC STLMLC [id number] Co mmon 00:00:00 00:00:00 [facility]IT [facility] ESTAB PT - CHI LEVEL 4 [facility] 2021-09-26 2021-09-26 OFFICE STLMLC STLMLC [id number] Co mmon 00:00:00 00:00:00 [facility]IT [facility] ESTAB PT - CHI LEVEL 4 [facility] 2021-08-28 2021-08-28 OFFICE STLMLC STLMLC [id number] Co mmon 00:00:00 00:00:00 [facility]IT [facility] ESTAB PT - CHI LEVEL 4 [facility] 2021-08-19 2021-08-19 (TEL) STLMLC STLMLC [id number] Co mmon 00:00:00 00:00:00 [facility] 2021-08-07 2021-08-07 OFFICE STLMLC STLMLC [id number] Co mmon 00:00:00 00:00:00 [facility] ESTAB PT - CHI LEVEL 4 [facility] 2021-08-06 2021-08-06 (TEL) STLMLC STLMLC [id number] Co mmon 00:00:00 00:00:00 [facility] 2021-07-17 2021-07-17 OFFICE STLMLC STLMLC [id number] Co mmon 00:00:00 00:00:00 VISIT [facility] ESTAB PT - [facility] LEVEL 4 [facility] 2021-06-19 2021-06-19 (TEL) STLMLC STLMLC [id number] Co mmon 00:00:00 00:00:00 [facility] 2021-06-11 2021-06-11 OFFICE STLMLC STLMLC [id number] Co mmon 00:00:00 00:00:00 VISIT EST Spir it PT LEVEL 3 [facility] 2021-05-10 2021-05-10 OFFICE STLMLC STLMLC [id number] Co mmon 00:00:00 00:00:00 VISIT EST Spir it PT LEVEL 3 [facility] 2021-05-08 2021-05-08 Outpatient STLMLC STLMLC [id number] Common 00:00:00 00:00:00 [facility] 2021-05-05 2021-05-06 Emergency [facility] [id number] Univers 20:38:00 00:10:00 Neris Lion [id number] ity [facility] [id number] [facility] [phone] [place] [address] [address] 2021-05-05 2021-05-05 Emergency X [facility] ERT [id number] Univers 20:38:00 20:38:00 NERIS ity [facility] 2020-09-12 2020-09-12 Outpatient G_Pappas [facility] [id number] [place] 02:20:00 02:20:00 [id number] [facility] 2019-07-26 2019-07-26 [facility] [id number] Common 15:05:00 15:05:[address] [employer] [address] [facility] 2019-07-11 2019-07-11 Outpatient [facility] [id number] Common 11:15:00 11:15:[address] [facility] 2019-05-09 2019-05-09 Out[facility] [id number] Common 10:15:00 10:15:[address] [facility] 2019-04-08 2019-04-08 Outpatient [facility] [id number] Common 10:00:00 10:00:[address] [facility] 2019-02-28 2019-02-28 Outpatient [facility] [id number] Common 08:53:00 08:53:[address] [facility] 2019-01-10 2019-01-10 Out[facility] [id number] Common 09:45:00 09:45:[address] [facility] 2018-12-29 2018-12-29 Out[facility] [id number] Common 10:29:00 10:29:[address] [facility] 2018-11-30 2018-11-30 Berenice [facility] [place] [place] - [id number] [place] 00:00:00 00:00:00 Julio Patel 0205 cristina [facility] travis MD: [address] [place] [address] [address], [place] [address] , Ph. [phone] 2018-11-29 2018-11-29 Out[facility] [id number] Common 09:45:00 09:45:[address] [facility] 2018-10-12 2018-10-12 Outpatient [facility] [id number] Common 11:04:00 11:04:[address] [facility] 2018-10-12 2018-10-12 Out[facility] [id number] Common 08:30:00 08:30:[address] [facility] 2018-06-17 2018-06-17 Outpatient [facility] [id number] Common 09:00:00 09:00:[address] [facility] 2018-06-10 2018-06-10 Outpatient [facility] [id number] Common 08:22:00 08:22:[address] [facility] 2018-06-07 2018-06-07 Out[facility] [id number] Common 14:00:00 14:00:[address] [facility] 2018-05-06 2018-05-06 Out[facility] [id number] Common 09:45:00 09:45:[address] [facility] 2018-04-29 2018-04-29 Outpatient [facility] [id number] Common 08:41:00 08:41:[address] [facility] 2018-04-20 2018-04-20 Outpatient [facility] [id number] Common 13:55:00 13:55:[address] [facility] 2018-04-07 2018-04-07 Out[facility] [id number] Common 11:00:00 11:00:[address] [facility] Results This patient has no known results.
[2023-06-13 15:29] LABS: Specific Gravity < 1.005 (1.005-1.030)
[2023-06-13 15:32] LABS: Specific Gravity < 1.005 (1.005-1.030); Urine Bacteria None Seen /HPF (<20); Urine Bilirubin NEGATIVE (Negative); Urine Blood Negative (Negative); Urine Clarity Clear (Clear); Urine Color Colorless (Yellow); Urine Glucose NEGATIVE (Negative); Urine Protein NEGATIVE (Negative); Urine RBC <5 /HPF (None Seen); Urine Urobilinogen Normal (Normal); Urine pH 5.5 (5.0-7.0)
[2023-06-13 15:55] LABS: Absolute Lymphocytes (CBC) 1.4 K/uL (0.7-4.9); Hematocrit 39.9 % (36.0-45.0); Lymphocytes % 28.3 % (15.3-44.8); MCV 92.4 fL (80-100); MPV 9.3 fL (7.6-11.3); Platelets 220 thou/uL (152-406); RBC Red Blood Cell Count 4.32 M/uL (3.86-4.86)
[2023-06-13 16:11] LABS: Bilirubin Total 0.4 mg/dL (0.2-1.0); Potassium 3.9 mEq/L (3.5-5.1); Protein, Total 7.3 g/dL (6.4-8.2)
[2023-06-13] MEDS ORDERED: NA CHLORIDE 0.9% 1,000 ML ONE (16:52)
[2023-06-13] MEDS ORDERED: KETOROLAC 30 MG/ML INJ ONE (17:56)
[2023-06-13] MEDS ORDERED: SUCRALFATE 1 GM TABLET ONE (17:56)
[2023-06-13] MEDS ORDERED: FAMOTIDINE 20 MG/2 ML VIAL IV ONE (17:56)
--- NOTE | 2023-06-13 18:13 | RAD REPORT ---
EXAM DESCRIPTION: CT - Abdomen Pelvis W Contrast - 06/13/2023 5:32 pm CLINICAL HISTORY: ABD PAIN COMPARISON: No comparisons TECHNIQUE: Thin cut axial CT imaging of the abdomen and pelvis was performed following intravenous a dministration of 95 mL Isovue 300. Multiplanar reformats were generated and reviewed. All CT scans are performed using dose optimization technique as appropriate and may include automated exposure control or mA/KV adjustment according to patient size. FINDINGS: No suspicious findings in the lung bases. The liver, spleen, and pancreas show no suspicious findings. Gallbladder and biliary tree are also wi thout suspicious finding. Symmetric renal function is seen with no hydronephrosis or suspicious renal mass. No dilated bowel loops or bowel wall thickening. Mild fat stranding along the ascending colon adventi tia, nonspecific, and suggests segmental colitis. No free air, free fluid or fluid collections. No he rnia, mass or bulky lymphadenopathy. The urinary bladder is without significant finding. No suspicious bony findings. IMPRESSION: Fat stranding along the ascending colon, suggest sequelae of segmental colitis. No other acute intra-abdominal findings.
[2023-06-13] MEDS ORDERED: CIPROFLOXACIN 400mg IV 400 MG/200 ML BAG IV ONE (18:32)
--- NOTE | 2023-06-13 19:27 | EDPHYS ---
Physician Documentation [facility] Name: Candy José Age: 32 yrs Sex: Female : 1990 Arrival Date: 06/13/2023 Time: 13:15 Bed 14 Private MD: ED Physician Maurice Gillis HPI: 06/13 17:34 This 32 yrs old Female presents to ER via Ambulatory with complaints of Abdominal Pain, snw Diarrhea. 17:34 The patient presents with abdominal pain in the epigastric area, in the upper abdomen, snw in the left upper quadrant. Onset: The symptoms/episode began/occurred suddenly, 2 week(s) ago, and became persistent. The symptoms do not radiate. Associated signs and symptoms: Pertinent positives: diarrhea. The symptoms are described as constant. Severity of pain: At its worst the pain was moderate. The patient has not experienced similar symptoms in the past. It is unknown whether or not the patient has recently seen a physician. Historical: - Allergies: 13:35 No Known Allergies; nj1 - PMHx: 13:35 ADD; Depressive disorder; nj1 - PSHx: 13:35 None; nj1 - Immunization history:: Client reports having NOT received the Covid vaccine. - Social history:: Smoking status: Patient denies any tobacco usage or history of. ROS: 17:34 Constitutional: Negative for fever, chills, and weight loss, Eyes: Negative for injury, snw pain, redness, and discharge, ENT: Negative for injury, pain, and discharge, Neck: Negative for injury, pain, and swelling, Cardiovascular: Negative for chest pain, palpitations, and edema, Respiratory: Negative for shortness of breath, cough, wheezing, and pleuritic chest pain, Back: Negative for injury and pain, : Negative for injury, bleeding, discharge, and swelling, MS/Extremity: Negative for injury and deformity, Skin: Negative for injury, rash, and discoloration, Neuro: Negative for headache, weakness, numbness, tingling, and seizure, Psych: Negative for depression, anxiety, suicide ideation, homicidal ideation, and hallucinations. 17:34 Abdomen/GI: Positive for abdominal pain, diarrhea, of the left upper quadrant. Exam: 16:43 Constitutional: This is a well developed, well nourished patient who is awake, alert, snw and in no acute distress. Head/Face: Normocephalic, atraumatic. Eyes: Pupils equal round and reactive to light, extra-ocular motions intact. Lids and lashes normal. Conjunctiva and sclera are non-icteric and not injected. Cornea within normal limits. Periorbital areas with no swelling, redness, or edema. ENT: Nares patent. No nasal discharge, no septal abnormalities noted. Tympanic membranes are normal and external auditory canals are clear. Oropharynx with no redness, swelling, or masses, exudates, or evidence of obstruction, uvula midline. Mucous membranes moist. Neck: Trachea midline, no thyromegaly or masses palpated, and no cervical lymphadenopathy. Supple, full range of motion without nuchal rigidity, or vertebral point tenderness. No Meningismus. Chest/axilla: Normal chest wall appearance and motion. Nontender with no deformity. No lesions are appreciated. Cardiovascular: Regular rate and rhythm with a normal S1 and S2. No gallops, murmurs, or rubs. Normal PMI, no JVD. No pulse deficits. Respiratory: Lungs have equal breath sounds bilaterally, clear to auscultation and percussion. No rales, rhonchi or wheezes noted. No increased work of breathing, no retractions or nasal flaring. Back: No spinal tenderness. No costovertebral tenderness. Full range of motion. Skin: Warm, dry with normal turgor. Normal color with no rashes, no lesions, and no evidence of cellulitis. MS/ Extremity: Pulses equal, no cyanosis. Neurovascular intact. Full, normal range of motion. Neuro: Awake and alert, GCS 15, oriented to person, place, time, and situation. Cranial nerves II-XII grossly intact. Motor strength 5/5 in all extremities. Sensory grossly intact. Cerebellar exam normal. Normal gait. Psych: Awake, alert, with orientation to person, place and time. Behavior, mood, and affect are within normal limits. 16:43 Abdomen/GI: Inspection: abdomen appears normal, Bowel sounds: normal, in all quadrants, Palpation: mild abdominal tenderness, in the left upper quadrant. Vital Signs: 13:33 BP 138 / 100; Pulse 83; Resp 18; Temp 98.9(O); Pulse Ox 100% ; Weight 90.72 kg; Height nj1 5 ft. 8 in. ; Pain 7/10; 15:06 BP 128 / 99; Pulse 72; Resp 16 S; Pulse Ox 100% on R/A; Pain 8/10; kc6 17:00 BP 136 / 99; Pulse 63; Resp 19 S; Pulse Ox 100% on R/A; kc6 17:53 BP 134 / 99; Pulse 56; Resp 17 S; Pulse Ox 100% on R/A; kc6 18:36 BP 125 / 99; Pulse 61; Resp 17 S; Pulse Ox 100% on R/A; kc6 19:40 BP 127 / 99; Pulse 63; Resp 16; Pulse Ox 100% on R/A; ll3 13:33 Body Mass Index 30.41 (90.72 kg, 172.72 cm) nj1 13:33 Pain Scale: Adult nj1 15:06 Pain Scale: Adult kc6 MDM: 15:59 Patient medically screened. snw 17:35 Differential diagnosis: gastritis, gastroesophageal reflux disease, non-specific abd snw pain, pancreatitis. Data reviewed: vital signs, nurses notes, lab test result(s), radiologic studies. I considered the following discharge prescriptions or medication management in the emergency department Medications were administered in the Emergency Department. See DEC. 17:36 Counseling: I had a detailed discussion with the patient and/or guardian regarding the snw historical points, exam findings, and any diagnostic results supporting the discharge/admit diagnosis, lab results, radiology results. Awaiting: CT scan results, pt just returned from CT via W/C. 06/14 17:03 ED course: Pt needs Cipro 500mg po BID x 10 for Colitis. Called in to [facility] at 1706. 06/13 14:24 Order name: Urine W/Microscopic (UAM); Complete Time: 15:33 snw 06/13 14:24 Order name: PREGU; Complete Time: 15:38 snw 06/13 15:33 Order name: CBC with Diff; Complete Time: 16:08 snw 06/13 15:33 Order name: CMP; Complete Time: 16:19 snw 06/13 15:33 Order name: Lipase; Complete Time: 16:19 snw 06/13 15:33 Order name: Test, Serum; Complete Time: 16:08 snw 06/13 16:10 Order name: CT Abd/Pelvis - IV Contrast Only; Complete Time: 18:14 snw 06/13 15:33 Order name: IV Saline Lock; Complete Time: 17:22 snw 06/13 15:33 Order name: Labs collected and sent; Complete Time: 15:46 snw Administered Medications: 06/13 17:22 Drug: NS 0.9% IV 1000 ml Route: IV; Rate: 1 bolus; Site: right antecubital; kc6 18:34 Follow up: Response: No adverse reaction; IV Status: Completed infusion; IV Intake: kc6 1000ml 17:51 Drug: Famotidine IVP 20 mg Route: IVP; Site: right antecubital; kc6 18:35 Follow up: Response: No adverse reaction kc6 17:52 Drug: Sucralfate PO 1 grams Route: PO; kc6 18:35 Follow up: Response: No adverse reaction kc6 17:52 Drug: Ketorolac IVP 15 mg Route: IVP; Site: right antecubital; kc6 18:35 Follow up: Response: No adverse reaction; Pain is unchanged, physician notified kc6 18:34 Drug: Ciprofloxacin IVPB 400 mg Volume: 200 ml; Route: IVPB; Infused Over: 60 mins; kc6 Site: right antecubital; 19:53 Follow up: Response: No adverse reaction; IV Status: Completed infusion; IV Intake: ll3 200ml 19:29 Drug: Dicyclomine PO 20 mg Route: PO; ll3 19:52 Follow up: Response: No adverse reaction ll3 Disposition Summary: 06/13/23 19:25 Discharge Ordered Location: Home snw Condition: Stable snw Diagnosis - Left sided colitis snw - Upper abdominal pain, unspecified snw Followup: snw - With: Emergency Department - When: As needed - Reason: Worsening of condition Followup: snw - With: Private Physician - When: 2 - 3 days - Reason: Recheck today's complaints, Continuance of care, Re-evaluation by your physician Discharge Instructions: - Discharge Summary Sheet snw - Abdominal Pain, Adult snw - Upper Endoscopy, Adult snw - Rehydration, Adult snw - Colitis snw - [place] Diet snw Forms: - Medication Reconciliation Form snw - Thank You Letter snw - Antibiotic Education snw - Prescription Opioid Use snw - Patient Portal Instructions snw - Leadership Thank You Letter snw Prescriptions: - promethazine 25 mg Oral Tablet - take 1 tablet by ORAL route every 6 hours As needed; 20 tablet; Refills: 0, snw Product Selection Permitted - dicyclomine 20 mg Oral Tablet - take 1 tablet by ORAL route 3 times per day; 21 tablet; Refills: 0, Product snw Selection Permitted Signatures: Dispatcher [employer] EDJeanette Schwartz, SANDEEP-C MANAGER R D-Syl Tanner RN RN ll3 Krystyna King RN RN kc6 Ana Mancuso RN RN nj1 Corrections: (The following items were deleted from the chart) 13:36 13:35 PMHx: None; nj1 nj1
--- NOTE | 2023-06-13 19:27 | ER ---
Nurse's Notes [facility] Name: Candy Kumar Age: 32 yrs Sex: Female : 1990 Arrival Date: 06/13/2023 Time: 13:15 Bed 14 Private MD: Diagnosis: Left sided colitis;Upper abdominal pain, unspecified Presentation: 06/13 13:33 Chief complaint: Patient states: Left upper abdominal pain for 2 weeks. Hurts all the [facility] time. Pain seems to be worse after eating. Had diarrhea the first week, no more. Coronavirus screen: Vaccine status: Patient reports being unvaccinated. Ebola Screen: Patient denies travel to an Ebola-affected area in the 21 days before illness onset. Initial Sepsis Screen: Does the patient meet any 2 criteria? No. Patient's initial sepsis screen is negative. Does the patient have a suspected source of infection? No. Patient's initial sepsis screen is negative. Risk Assessment: Do you want to hurt yourself or someone else? Patient reports no desire to harm self or others. Onset of symptoms was May 2023. 13:33 Method Of Arrival: Ambulatory [facility] 13:33 Acuity: CAMPOS 3 nj1 Historical: - Allergies: 13:35 No Known Allergies; nj1 - PMHx: 13:35 ADD; Depressive disorder; nj1 - PSHx: 13:35 None; nj1 - Immunization history:: Client reports having NOT received the Covid vaccine. - Social history:: Smoking status: Patient denies any tobacco usage or history of. Screenin:05 [facility] ED Fall Risk Assessment (Adult) History of falling in the last 3 months, kc6 including since admission No falls in past 3 months (0 pts) Confusion or Disorientation No (0 pts) Intoxicated or Sedated No (0 pts) Impaired Gait No (0 pts) Mobility Assist Device Used No (0 pt) Altered Elimination No (0 pt) Score/Fall Risk Level 0 - 2 = Low Risk. Abuse screen: Denies threats or abuse. Denies injuries from another. Nutritional screening: No deficits noted. Tuberculosis screening: No symptoms or risk factors identified. Assessment: 15:06 General: Appears in no apparent distress. comfortable, Behavior is calm, cooperative, kc6 appropriate for age. Pain: Complains of pain in left upper quadrant Pain does not radiate. Pain currently is 8 out of 10 on a pain scale. Neuro: Level of Consciousness is awake, alert, obeys commands, Oriented to person, place, time, situation, Appropriate for age. Cardiovascular: Capillary refill < 3 seconds. Respiratory: Airway is patent Trachea midline Respiratory effort is even, unlabored, Respiratory pattern is regular, symmetrical. GI: Abdomen is flat, non-distended, Bowel sounds present X 4 quads. Abd is soft X 4 quads Abdomen is tender to palpation in left upper quadrant Reports diarrhea, nausea, vomiting. : No signs and/or symptoms were reported regarding the genitourinary system. EENT: No signs and/or symptoms were reported regarding the EENT system. Derm: No signs and/or symptoms reported regarding the dermatologic system. Skin is intact, is healthy with good turgor, Skin is pink, warm \T\ dry. Musculoskeletal: No signs and/or symptoms reported regarding the musculoskeletal system. Circulation, motion, and sensation intact. Capillary refill < 3 seconds, Range of motion: intact in all extremities. 16:06 Reassessment: Patient appears in no apparent distress at this time. No changes from kc6 previously documented assessment. Patient and/or family updated on plan of care and expected duration. Pain level reassessed. Patient is alert, oriented x 3, equal unlabored respirations, skin warm/dry/pink. 17:53 Reassessment: Patient appears in no apparent distress at this time. No changes from kc6 previously documented assessment. Patient and/or family updated on plan of care and expected duration. Pain level reassessed. Patient is alert, oriented x 3, equal unlabored respirations, skin warm/dry/pink. 18:36 Reassessment: Patient appears in no apparent distress at this time. No changes from kc6 previously documented assessment. Patient and/or family updated on plan of care and expected duration. Pain level reassessed. Patient is alert, oriented x 3, equal unlabored respirations, skin warm/dry/pink. 19:41 Reassessment: No changes from previously documented assessment. Patient and/or family ll3 updated on plan of care and expected duration. Pain level reassessed. Patient is alert, oriented x 3, equal unlabored respirations, skin warm/dry/pink. Vital Signs: 13:33 BP 138 / 100; Pulse 83; Resp 18; Temp 98.9(O); Pulse Ox 100% ; Weight 90.72 kg; Height nj1 5 ft. 8 in. ; Pain 7/10; 15:06 BP 128 / 99; Pulse 72; Resp 16 S; Pulse Ox 100% on R/A; Pain 8/10; kc6 17:00 BP 136 / 99; Pulse 63; Resp 19 S; Pulse Ox 100% on R/A; kc6 17:53 BP 134 / 99; Pulse 56; Resp 17 S; Pulse Ox 100% on R/A; kc6 18:36 BP 125 / 99; Pulse 61; Resp 17 S; Pulse Ox 100% on R/A; kc6 19:40 BP 127 / 99; Pulse 63; Resp 16; Pulse Ox 100% on R/A; ll3 13:33 Body Mass Index 30.41 (90.72 kg, 172.72 cm) nj1 13:33 Pain Scale: Adult nj1 15:06 Pain Scale: Adult kc6 ED Course: 13:16 Patient arrived in ED. im 13:31 Jeanette Cantor FNP-C is PHCP. snw 13:31 Maurice Gillis MD is Attending Physician. snw 13:35 Triage completed. nj1 13:36 Arm band placed on right wrist. nj1 14:58 Krystyna King, ETHEL is Primary Nurse. kc6 15:06 Patient has correct armband on for positive identification. Bed in low position. Call kc6 light in reach. Side rails up X 1. Adult w/ patient. 15:46 Missed attempt(s): 20 gauge in right antecubital area. kc6 16:50 Missed attempt(s): 22 gauge in left antecubital area. Bleeding controlled, band aid ds4 applied, catheter tip intact. 17:21 Inserted saline lock: 20 gauge in right antecubital area, using aseptic technique. db 17:34 CT Abd/Pelvis - IV Contrast Only In Process Unspecified. EDMS 19:55 No provider procedures requiring assistance completed. IV discontinued, intact, ll3 bleeding controlled, No redness/swelling at site. Pressure dressing applied. Administered Medications: 17:22 Drug: NS 0.9% IV 1000 ml Route: IV; Rate: 1 bolus; Site: right antecubital; kc6 18:34 Follow up: Response: No adverse reaction; IV Status: Completed infusion; IV Intake: kc6 1000ml 17:51 Drug: Famotidine IVP 20 mg Route: IVP; Site: right antecubital; kc6 18:35 Follow up: Response: No adverse reaction kc6 17:52 Drug: Sucralfate PO 1 grams Route: PO; kc6 18:35 Follow up: Response: No adverse reaction kc6 17:52 Drug: Ketorolac IVP 15 mg Route: IVP; Site: right antecubital; kc6 18:35 Follow up: Response: No adverse reaction; Pain is unchanged, physician notified kc6 18:34 Drug: Ciprofloxacin IVPB 400 mg Volume: 200 ml; Route: IVPB; Infused Over: 60 mins; kc6 Site: right antecubital; 19:53 Follow up: Response: No adverse reaction; IV Status: Completed infusion; IV Intake: ll3 200ml 19:29 Drug: Dicyclomine PO 20 mg Route: PO; ll3 19:52 Follow up: Response: No adverse reaction ll3 Medication: 19:56 VIS not applicable for this client. ll3 Intake: 18:34 IV: 1000ml; Total: 1000ml. kc6 19:53 IV: 200ml; Total: 1200ml. ll3 Outcome: 19:25 Discharge ordered by MD. snw 19:55 Discharged to home ambulatory, with family, with significant other. ll3 19:55 Condition: stable 19:55 Discharge instructions given to patient, significant other, Instructed on discharge instructions, follow up and referral plans. medication usage, Demonstrated understanding of instructions, follow-up care, medications, Prescriptions given X 2. 19:56 Patient left the ED. ll3 Signatures: Dispatcher [employer] EDNE Jeanette Cantor, SANDEEP-C PRE ASSEMBLY WIRER-Lnicoln Clark ds4 Syl Ac RN RN ll3 Krystyna King RN RN kc6 Ashlyn Dos Santos RN RN db Ana Mancuso RN RN nj1 Aminah Smith Corrections: (The following items were deleted from the chart) 13:36 13:35 PMHx: None; nj1 nj1
[2023-06-13] MEDS ORDERED: DICYCLOMINE HCL 10 MG CAP ONE (19:38)
[2023-06-13 20:20] VITALS: TEMP 98.9; O2SAT 100
[2023-06-13 20:25] VITALS: BP 127/99
== END 2023-06-13 19:56 | disposition home or self-care (01) ==
LOC: ER 13:15
DX: K52.9 Noninfective gastroenteritis and colitis, unspecified (principal); R10.10 Upper abdominal pain, unspecified; F32.A Depression, unspecified; F98.8 Other specified behavioral and emotional disorders with onset usually occurring in childhood and adolescence
CPT/HCPCS: 96365; 96361; 85025; 81001; 36415; 84703; 81025; 83690; 80053; 74177; 96375; 99284; Q9967; J0744; J7030

== ENCOUNTER 2024-05-30 10:55 | Observation (INO) | payer SELFPAY ==
--- OUTSIDE RECORDS SUMMARY | 2024-05-30 10:58 | XMS REPORT | Continuity of Care Document ---
Author Name Unknown Address [address] [facility] [address] [place] [address] [facility] Address [address] [facility] [address] [place] [address] Care Team Providers Care Scrub Woman Name Role Phone MOLLY NIEVES Primary Care Physician Unavailab Molly Morris Attending Clinician Unavailable Zuleika White MD Attending Clinician + [phone] ZULEIKA WHITE Attending Clinician Paramjit john Doctor Unassigned, [place] Attending Clinician U navailable DICGINO_BARTOLO Attending Clinician Unavailab KAYLENE Brandon Attending Clinician Unavailable Disha Rush PA-C Attending Clinician [phone] Kaylene Osorio MD Attending Clinician [phone] DISHA RUSH Attending Clinician Unavailable Neris Crawford Attending Clinician [phone] NERIS AGUILAR Attending Clinician Unavaila maria del carmen G_Pappas Attending Clinician Unavailable ZULEIKA WHITE Admitting Clinician Zuleika Vasquez MD Admitting Clinician + [phone] BRYAN_BARTOLO Admitting Clinician Unavailab terry Mccurdy_Farzana Admitting Clinician Unavailable Payers Payer Name Policy Type Policy Number Effective Date Expirati on Date Source [facility] 6 [id number] 2021 00:00:00 Common [facility] (O) [id number] [facility] (PPO) [id number] Problems Condition Name Condition Details Condition Category Status Onset Date Resolution Date Last Treatment Date Treating Clinician Comments Source Class 1 obesity Class 1 obesity Disease Active 05-19 00:00: 00 [facility] Constipati on Constipati on Disease Active 05-19 00:00: 00 [facility] Insomnia Insomnia Disease Active 05-19 00:00: 00 [facility] Iron deficiency anemia Iron deficiency anemia Disease Active 05-19 00:00: 00 [facility] Moderate major depression , single episode Moderate major depression , single episode Disease Active 05-19 00:00: 00 [facility] Vitamin B12 deficiency Vitamin B12 deficiency Disease Active 05-19 00:00: 00 [facility] Vitamin D deficiency Vitamin D deficiency Disease Active 05-19 00:00: 00 [facility] Essential hypertensi on Essential hypertensi on Disease Active 05-19 00:00: 00 [facility] Anxiety Anxiety Disease Active 05-19 00:00: 00 [facility] Menstrual disorder Menstrual disorder Disease Active 2-05 00:00: 00 [facility] No known active problems No known active problems Disease [facility] [id number] Adult BMI 34.0-34.9 kg/sq m Problem Common [facility] Allergies, Adverse Reactions, Alerts Allergy Name Allergy Type Status Severity Reaction(s) Onset Date Inactive Date Treating Clinician Comments Source NO KNOWN ALLERGIE S Drug Class Active [facility] Social History Social Habit Start Date Stop Date Quantity Comments Source Exposure to SARS-CoV-2 (event) Not sure [facility] History of Tobacco Use [facility] Sex Assigned At [facility] History of Social function 2023-07-01 00:00:00 2023-07-01 00:00:00 [facility] Alcohol intake 2023-06-22 00:00:00 2023-06-22 00:00:00 Current drinker of alcohol (finding) [facility] Tobacco use and exposure 2021-11-25 00:00:00 2021-11-25 00:00:00 Smokeless tobacco non-user [facility] Smoking Status Start Date Stop Date Source Never smoked tobacco [facility] Medications Ordered Medication Name Filled Medication Name Start Date Stop Date Current Medication? Ordering Clinician Indication Dosage Frequency Signature (SIG) Comments Components Source ondansetron (ZOFRAN (PF)) injection 4 mg 07-01 18:07: 18 Yes 4mg 4 mg, Slow IV Push, PRN, 1 dose, Starting on Thu07/01/23 at 1307, Until Discontinu ed, Routine, Nausea and Vomiting (N/V), PACU [facility] water for irrigation irrigation solution 07-01 17:50: 00 07-01 18:34 :19 No PRN, Starting on Thu07/01/23 at 1250, Until Thu07/01/23 at 1334, Routine, Intra-op [facility] simethicone (GAS RELIEF (SIMETHICON E)) 40 mg/0.6 mL drops 07-01 17:50: 00 07-01 18:34 :19 No PRN, Starting on Thu07/01/23 at 1250, Until Thu07/01/23 at 1334, Routine, Intra-op [facility] lactated ringers IV infusion 1,000 mL 07-01 17:00: 00 07-01 17:12 :00 No 1000mL at 42 mL/hr, 1,000 mL, IV Infusion, ONCE, 1 dose, On Thu07/01/23 at 1200, Routine, DSU Pre-op [facility] MULTIVITAMI N ORAL 07-01 14:52: 16 Yes multivitam in take one tablet once a day [facility] Magnesium 30 mg Tab 07-01 14:52: 16 Yes 1 tablet with a meal [facility] escitalopra m oxalate (LEXAPRO) 20 mg tablet 07-01 14:52: 16 Yes 1 tablet [facility] doxycycline hyclate 100 mg capsule 07-01 14:52: 16 Yes 100mg Take 1 capsule by mouth in the morning. [facility] acetaminoph en (TYLENOL) 325 mg tablet 07-01 14:52: 16 Yes 1 tablet as needed [facility] plecanatide (TRULANCE) 3 mg Tab 07-01 14:52: 16 Yes 1 tablet [facility] ciprofloxac in HCl (CIPRO) 500 mg tablet 07-01 14:52: 16 Yes 500mg Take 1 tablet by mouth in the morning. [facility] dicyclomine 10 mg capsule 07-01 14:52: 16 Yes 10mg Take 1 capsule by mouth in the morning. [facility] lisdexamfet amine (VYVANSE) 40 mg capsule 07-01 14:52: 16 Yes 40mg Take 1 capsule by mouth every morning. [facility] Eszopiclone 2 MG Eszopiclone 2 MG 2021-10 00:00: 00 No 1{table t_immed iately_ before_ bedtime } QD Eszopiclon e 2 MG Eszopiclone 2 MG Eszopiclone 2 MG 05-14 00:00: 00 No 1{table t_immed iately_ before_ bedtime } QD Eszopiclon e 2 MG Eszopiclone 2 MG Eszopiclone 2 MG 05-14 00:00: 00 No 1{table t_immed iately_ before_ bedtime } QD Eszopiclon e 2 MG eszopiclone 2 mg tablet 05-13 00:00: 00 Yes 1 tablet immediatel y before bedtime [facility] Lexapro 20 MG Lexapro 20 MG 6-16 00:00: 00 No 1{table t} QD Lexapro 20 MG Eszopiclone 2 MG Eszopiclone 2 MG 6-16 00:00: 00 No 1{table t_immed iately_ before_ bedtime } QD Eszopiclon e 2 MG metroNIDAZO LE 500 mg tablet 2-02 00:00: 00 Yes [id number] 500mg Take 1 tablet by mouth every 12 (twelve) hours. [facility] propranoloL 10 mg tablet -28 00:00: 00 Yes [facility] buPROPion XL 150 mg 24 hr tablet -20 00:00: 00 Yes 150mg Take 1 tablet by mouth every morning. [facility] Eszopiclone 2 MG Eszopiclone 2 MG 1-19 00:00: 00 No 1{table t_immed iately_ before_ bedtime } QD Eszopiclone 1 MG Eszopiclone 1 MG 2020-10 2- 00:00: 00 No 1{table t_immed iately_ before_ bedtime } QD Eszopiclon e 1 MG buPROPion HCl ER (XL) 150 MG buPROPion HCl ER (XL) 150 MG 2020-10 1-03 00:00: 00 No 1{table t_in_th e_morni ng} QD buPROPion HCl ER (XL) 150 MG Kenalog (Triamcinol one) Kenalog (Triamcinol one) 2020-10 0-13 00:00: 00 No 40mg [facility] Kenalog (Triamcinol one) Kenalog (Triamcinol one) 2020-10 0-13 00:00: 00 No 40mg [facility] Kenalog (Triamcinol one) Kenalog (Triamcinol one) 2020-10 0-13 00:00: 00 No 40mg Common [facility] Propranolol HCl 10 MG Propranolol HCl 10 MG 9- 00:00: 00 No 1{table t} QD Propranolo l HCl 10 MG Phentermine HCl 37.5 MG Phentermine HCl 37.5 MG 817 00:00: 00 07-11 00:00 :00 No 1{capsu le} QD Phentermin e HCl 37.5 MG Phentermine HCl 37.5 MG Phentermine HCl 37.5 MG 8-17 00:00: 00 07-11 00:00 :00 No 1{capsu le} QD Phentermin e HCl 37.5 MG Linzess 72 MCG Linzess 72 MCG 16 00:00: 00 06-09 00:00 :00 No QD Linzess 72 MCG Lomaira Lomaira 16 00:00: 00 08-10 00:00 :00 No Molly Nieves 1 tablet before meals [facility] Wellbutrin XL Wellbutrin XL 05-09 00:00: 00 Yes Molly Nieves 1 tablet in the morning [facility] Vitamin B12 (Cyanocobal hernadez) Vitamin B12 (Cyanocobal hernadez) 0 15 00:00: 00 No 1000ug [facility] Vitamin B12 (Cyanocobal hernadez) Vitamin B12 (Cyanocobal hernadez) 0 715 00:00: 00 No 1000ug [facility] Vitamin B12 (Cyanocobal hernadez) Vitamin B12 (Cyanocobal hernadez) 0 15 00:00: 00 No 1000ug [facility] Vitamin B12 (Cyanocobal hernadez) Vitamin B12 (Cyanocobal hernadez) 20190 2-04 00:00: 00 No 1000ug [facility] Vitamin B12 (Cyanocobal hernadez) Vitamin B12 (Cyanocobal hernadez) 0 2-04 00:00: 00 No 1000ug [facility] Vitamin B12 (Cyanocobal hernadez) Vitamin B12 (Cyanocobal hernadez) 20190 2-04 00:00: 00 No 1000ug [facility] Kenalog (Triamcinol one) Kenalog (Triamcinol one) 2017-10 00:00: 00 No 40mg [facility] Kenalog (Triamcinol one) Kenalog (Triamcinol one) 2017-10 00:00: 00 No 40mg [facility] Kenalog (Triamcinol one) Kenalog (Triamcinol one) 2017-10 00:00: 00 No 40mg [facility] xRocephin 1 gm xRocephin 1 gm 06-17 00:00: 00 No 1g [facility] xRocephin 1 gm xRocephin 1 gm 06-17 00:00: 00 No 1g [facility] xRocephin 1 gm xRocephin 1 gm 06-17 00:00: 00 No 1g [facility] Vitamin B12 (Cyanocobal hernadez) Vitamin B12 (Cyanocobal hernadez) 06-07 00:00: 00 No 1000ug [facility] Vitamin B12 (Cyanocobal hernadez) Vitamin B12 (Cyanocobal hernadez) 06-07 00:00: 00 No 1000ug [facility] Vitamin B12 (Cyanocobal hernadez) Vitamin B12 (Cyanocobal hernadez) 06-07 00:00: 00 No 1000ug [facility] multivitami n take one tablet once a day multivitami n take one tablet once a day No multivitam in take one tablet once a day [facility] Magnesium Magnesium Yes Molly Nieves 1 tablet with a meal [facility] Vitamin D (Cholecalci ferol) Vitamin D (Cholecalci ferol) Yes Molly Nieves 1 tablet [facility] Tylenol Tylenol Yes Molly Nieves 1 tablet as needed [facility] Tylenol 325 MG Tylenol 325 MG No 1{table t_as_ne eded} 6xD Tylenol 325 MG Tylenol 325 MG Tylenol 325 MG No 1{table t_as_ne eded} 6xD buPROPion HCl ER (XL) 150 MG buPROPion HCl ER (XL) 150 MG No 1{table t_in_th e_morni ng} QD Trulance 3 MG Trulance 3 MG No 1{table t} QD Trulance 3 MG buPROPion HCl ER (XL) 300 MG buPROPion HCl ER (XL) 300 MG No 1{table t_in e_morni ng} QD buPROPion HCl ER (XL) 300 MG Tylenol 325 MG Tylenol 325 MG No 1{table t_as_ne eded} 6xD Tylenol 325 MG Trulance 3 MG Trulance 3 MG No 1{table t} QD Trulance 3 MG Lexapro 20 MG Lexapro 20 MG No 1{table t} QD Lexapro 20 MG Lexapro 20 MG Lexapro 20 MG No 1{table t} QD Lexapro 20 MG Tylenol 325 MG Tylenol 325 MG No 1{table t_as_ne eded} 6xD Tylenol 325 MG buPROPion HCl ER (XL) 150 MG buPROPion HCl ER (XL) 150 MG No 1{table t_in_ e_morni ng} QD buPROPion HCl ER (XL) 150 MG Vitamin D (Cholecalci ferol) 1000 UNIT Vitamin D (Cholecalci ferol) 1000 UNIT No 1{table t} QD Vitamin D (Cholecalc iferol) 1000 UNIT Wellbutrin XL 300 MG Wellbutrin XL 300 MG No 1{table t_in e_morni ng} QD Wellbutrin XL 300 MG Tylenol 325 MG Tylenol 325 MG No 1{table t_as_ne eded} 6xD Tylenol 325 MG Cefdinir 300 MG Cefdinir 300 MG No Cefdinir 300 MG Lomaira 8 MG Lomaira 8 MG No 1{table t_befor e_meals } TID Lomaira 8 MG Lactulose 10 GM/15ML Lactulose 10 GM/15ML No 15{ml} QD Lactulose 10 GM/15ML Vital Signs Vital Name Observation Time Observation Value Comments S chris Systolic blood pressure 2023-07-01 18:40:00 133 mm[Hg] [facility] Diastolic blood pressure 2023-07-01 18:40:00 94 mm[Hg] [facility] Respiratory rate 2023-07-01 18:40:00 17 /min [facility] Oxygen saturation in Arterial blood by Pulse oximetry 2023-07-01 18:40:00 100 /min [facility] Heart rate 2023-07-01 18:35:00 73 /min [facility] Body temperature 2023-07-01 18:07:00 36.67 Krys [facility] Body height 2023-06-22 17:00:00 172.7 cm [facility] Body weight 2023-06-22 17:00:00 90.719 kg [facility] BMI 2023-06-22 17:00:00 30.41 kg/m2 [facility] Systolic blood pressure 2023-07-01 18:40:00 133 mm[Hg] [facility] Diastolic blood pressure 2023-07-01 18:40:00 94 mm[Hg] [facility] Respiratory rate 2023-07-01 18:40:00 17 /min [facility] Oxygen saturation in Arterial blood by Pulse oximetry 2023-07-01 18:40:00 100 /min [facility] Heart rate 2023-07-01 18:35:00 73 /min [facility] Body temperature 2023-07-01 18:07:00 36.67 Krys [facility] Body height 2023-06-22 17:00:00 172.7 cm [facility] Body weight 2023-06-22 17:00:00 90.719 kg [facility] BMI 2023-06-22 17:00:00 30.41 kg/m2 [facility] height 2022-08-14 13:00:00 67.5 [in_i] Comm on [facility] weight 2022-08-14 13:00:00 216 [lb_av] Comm on [facility] temperature 2022-08-14 13:00:00 98.0 [degF] Com mon [facility] bmi 2022-08-14 13:00:00 33.33 kg/m2 Comm on [facility] oximetry 2022-08-14 13:00:00 99 % Commo n [facility] respiratory rate 2022-08-14 13:00:00 18 /min [facility] blood pressure systolic 2022-08-14 13:00:00 130 mm[Hg] [facility] blood pressure diastolic 2022-08-14 13:00:00 75 mm[Hg] [facility] height 2022-05-14 16:40:00 68 [in_i] Commo n [facility] weight 2022-05-14 16:40:00 186 [lb_av] Comm on [facility] temperature 2022-05-14 16:40:00 97 [degF] Comm on [facility] bmi 2022-05-14 16:40:00 28.28 kg/m2 Comm on [facility] blood pressure systolic 2022-05-14 16:40:00 122 mm[Hg] [facility] blood pressure diastolic 2022-05-14 16:40:00 70 mm[Hg] [facility] height 2022-04-10 07:50:00 68 [in_i] Commo n [facility] weight 2022-04-10 07:50:00 185 [lb_av] Comm on [facility] temperature 2022-04-10 07:50:00 98 [degF] Comm on [facility] bmi 2022-04-10 07:50:00 28.13 kg/m2 Comm on [facility] blood pressure systolic 2022-04-10 07:50:00 125 mm[Hg] Common [facility] blood pressure diastolic 2022-04-10 07:50:00 75 mm[Hg] [facility] height 2022-01-10 13:40:00 68 [in_i] Commo n [facility] weight 2022-01-10 13:40:00 184 [lb_av] Comm on [facility] bmi 2022-01-10 13:40:00 27.97 kg/m2 Comm on [facility] Body temperature 2021-11-25 15:26:00 36.67 Krys [facility] Respiratory rate 2021-11-25 15:26:00 18 /min [facility] Body height 2021-11-25 15:26:00 172.7 cm [facility] Body weight 2021-11-25 15:26:00 86.909 kg [facility] BMI 2021-11-25 15:26:00 29.13 kg/m2 [facility] Systolic blood pressure 2021-11-25 15:26:00 121 mm[Hg] [facility] Diastolic blood pressure 2021-11-25 15:26:00 84 mm[Hg] [facility] Heart rate 2021-11-25 15:26:00 71 /min [facility] height 2021-11-13 11:30:00 68 [in_i] Commo n [facility] weight 2021-11-13 11:30:00 184 [lb_av] Comm on [facility] temperature 2021-11-13 11:30:00 98 [degF] Comm on [facility] bmi 2021-11-13 11:30:00 27.97 kg/m2 Comm on [facility] blood pressure systolic 2021-11-13 11:30:00 123 mm[Hg] [facility] blood pressure diastolic 2021-11-13 11:30:00 82 mm[Hg] Common [facility] height 2021-09-26 13:20:00 68 [in_i] Commo n [facility] weight 2021-09-26 13:20:00 192.1 [lb_av] Co mmon [facility] temperature 2021-09-26 13:20:00 97.6 [degF] Com mon [facility] bmi 2021-09-26 13:20:00 29.21 kg/m2 Comm on [facility] oximetry 2021-09-26 13:20:00 100 % Commo n [facility] respiratory rate 2021-09-26 13:20:00 16 /min Common [facility] blood pressure systolic 2021-09-26 13:20:00 129 mm[Hg] [facility] blood pressure diastolic 2021-09-26 13:20:00 87 mm[Hg] [facility] height 2021-08-28 15:40:00 68 [in_i] Commo n [facility] weight 2021-08-28 15:40:00 195 [lb_av] Comm on [facility] temperature 2021-08-28 15:40:00 98 [degF] Comm on [facility] bmi 2021-08-28 15:40:00 29.65 kg/m2 Comm on [facility] blood pressure systolic 2021-08-28 15:40:00 130 mm[Hg] [facility] blood pressure diastolic 2021-08-28 15:40:00 72 mm[Hg] [facility] height 2021-08-07 10:00:00 68 [in_i] Commo n [facility] weight 2021-08-07 10:00:00 195.7 [lb_av] Co mmon [facility] temperature 2021-08-07 10:00:00 97.6 [degF] Com mon [facility] bmi 2021-08-07 10:00:00 29.75 kg/m2 Comm on [facility] oximetry 2021-08-07 10:00:00 100 % Commo n [facility] respiratory rate 2021-08-07 10:00:00 16 /min Common [facility] blood pressure systolic 2021-08-07 10:00:00 132 mm[Hg] Common [facility] blood pressure diastolic 2021-08-07 10:00:00 83 mm[Hg] [facility] height 2021-07-17 10:40:00 68 [in_i] Commo n [facility] weight 2021-07-17 10:40:00 194.3 [lb_av] Co mmon [facility] temperature 2021-07-17 10:40:00 97.5 [degF] Com mon [facility] bmi 2021-07-17 10:40:00 29.54 kg/m2 Comm on [facility] oximetry 2021-07-17 10:40:00 100 % Commo n [facility] respiratory rate 2021-07-17 10:40:00 17 /min [facility] blood pressure systolic 2021-07-17 10:40:00 149 mm[Hg] [facility] blood pressure diastolic 2021-07-17 10:40:00 96 mm[Hg] Common [facility] weight 2021-06-11 11:00:00 195 [lb_av] Comm on [facility] temperature 2021-06-11 11:00:00 98 [degF] Comm on [facility] bmi 2021-06-11 11:00:00 29.65 kg/m2 Comm on [facility] height 2021-06-11 11:00:00 68 [in_i] Commo n [facility] height 2021-05-10 15:40:00 68 [in_i] Commo n [facility] weight 2021-05-10 15:40:00 198.8 [lb_av] Co mmon [facility] temperature 2021-05-10 15:40:00 97.4 [degF] Com mon [facility] bmi 2021-05-10 15:40:00 30.22 kg/m2 Comm on [facility] oximetry 2021-05-10 15:40:00 100 % Commo n [facility] respiratory rate 2021-05-10 15:40:00 16 /min Common [facility] blood pressure systolic 2021-05-10 15:40:00 125 mm[Hg] [facility] blood pressure diastolic 2021-05-10 15:40:00 78 mm[Hg] [facility] BP Diastolic 2018-11-30 00:00:00 89 mm[Hg] [facility] Height 2018-11-30 00:00:00 67 [in_i] [facility] BMI (Body Mass Index) 2018-11-30 00:00:00 34.5 kg/m2 [facility] BP Systolic 2018-11-30 00:00:00 129 mm[Hg] [facility] Body Weight 2018-11-30 00:00:00 220 [lb_av] [facility] Procedures Procedure Date / Time Performed Performing Clinician Source COLONOSCOPY 2023-07-01 17:34:00 Zuleika White [facility] COLONOSCOPY (ENDO) 2023-07-01 17:28:21 aPm Caldwell [facility] COLONOSCOPY (ENDO) 2023-07-01 17:28:21 Pam Caldwell [facility] POCT TEST 2023-07-01 17:07:00 Francisco Valderrama [facility] POCT TEST 2023-07-01 17:07:00 Francisco Valderrama [facility] PATIENT QUESTIONNAIRE 2023-07-01 05:01:00 Doctor Unassigned, [place] [facility] EXTERNAL PROVIDER RECORDS 2023-06-25 05:01:00 Doctor Unassigned, [place] [facility] EXTERNAL PROVIDER RECORDS 2023-06-25 05:01:00 Doctor Unassigned, [place] [facility] DISCLOSURE AND CONSENT, MEDICAL AND SURGICAL PROCEDURES 2023-06-22 05:01:00 Doctor Unassigned, [place] [facility] DISCLOSURE AND CONSENT, MEDICAL AND SURGICAL PROCEDURES 2023-06-22 05:01:00 Doctor Unassigned, [place] [facility] US, transvaginal 2018-11-30 00:00:00 Brooksmei reardon [facility] Extraction of Vona Tooth 2017-11-26 00:00[facility]00 [facility] Planned Activity Planned Date Details Comments Source Diagnostic Test Pending 2018-11-30 00:00:00 CBC w/ auto diff [code = CBC w/ auto diff] [facility] Diagnostic Test Pending 2018-11-30 00:00:00 beta-HCG, quantitative, serum or plasma [code = beta-HCG, quantitative, serum or plasma] [facility] Encounters Start Date/Time End Date/Time Encounter Type Admission Type Attending Clinicians Care Facility Care Department Encounter ID Source 2022-09-02 14:51:00 Outpatient Nieves, Molly [facility] [id number] [facility] 2022-08-12 10:49:00 Outpatient Nieves, Molly [facility] [id number] [facility] 2021-11-20 14:29:49 Outpatient Nieves, Molly [facility] [id number] [facility] 2021-11-20 14:07:52 Outpatient Nieves, Molly [facility] [id number] [facility] 2021-11-20 14:00:24 Outpatient Nieves, Molly [facility] [id number] [facility] 2021-11-20 13:38:41 Outpatient Nieves, Molly [facility] [id number] [facility] 2021-11-20 13:30:36 Outpatient Nieves, Molly [facility] [id number] [facility] 2021-11-20 13:27:12 Outpatient Nieves, Molly [facility] [id number] [facility] 2023-07-01 14:10:00 2023-07-01 14:49:00 Surgery Zuleika Estrada [facility] [id number] [facility] 2023-07-01 11:49:00 2023-07-01 13:48:00 Outpatient R ZULEIKA ESTRADA [facility] [id number] [facility] 2023-07-01 11:49:00 2023-07-01 13:48:00 Hospital Encounter Zuleika Estrada [facility] [id number] [facility] 2023-07-01 00:00:00 2023-07-01 00:00:00 Orders Only Doctor Unassigned, [place] [facility] [id number] [facility] 2022-08-14 00:00:00 2022-08-14 00:00:00 PREV VISIT EST AGE 18-39 [facility] [id number] [facility] 2022-05-30 00:00:00 2022-05-30 00:00:00 Outpatient BRYAN_ BARTOLO CHE [facility] [id number] [facility] 2022-05-26 13:30:00 2022-05-26 13:30:00 Outpatient R KAYLENE OSORIO [facility] [id number] [facility] 2022-05-14 00:00:00 2022-05-14 00:00:00 OFFICE VISIT ESTAB PT LEVEL 4 [facility]MLC [facility] [id number] [facility] 2022-05-14 00:00:00 2022-05-14 00:00:00 (WEB) [facility] [id number] [facility] 2022-05-13 00:00:00 2022-05-13 00:00:00 (WEB) STLMLC STLMLC [id number] [facility] 2022-04-10 00:00:00 2022-04-10 00:00:00 OFFICE VISIT ESTAB PT LEVEL 4 [facility]LMLC ST[facility] [id number] [facility] 2022-04-04 00:00:00 2022-04-04 00:00:00 (TEL) STLMLC STLMLC [id number] [facility] 2022-01-10 00:00:00 2022-01-10 00:00:00 OFFICE VISIT EST PT LEVEL 3 STLMLC [facility] [id number] [facility] 2022-01-09 00:00:00 2022-01-09 00:00:00 (TEL) STLMLC STLMLC [id number] [facility] 2021-11-27 00:00:00 2021-11-27 00:00:00 Case Management Disha Rush [facility] [id number] [facility] 2021-11-25 09:30:00 2021-11-25 09:53:26 Office Visit Kaylene Osorio [facility] [id number] [facility] 2021-11-25 09:30:00 2021-11-25 09:53:26 Outpatient DISHA MEDINA [facility] [id number] [facility] 2021-11-25 09:30:00 2021-11-25 09:30:00 Outpatient DISHA MEDINA [facility] [id number] [facility] 2021-11-25 00:00:00 2021-11-25 00:00:00 Orders Only Doctor Unassigned, [place] [facility] [id number] [facility] 2021-11-13 00:00:00 2021-11-13 00:00:00 OFFICE VISIT ESTAB PT LEVEL 4 [facility]LMLC [facility] [id number] [facility] 2021-09-26 00:00:00 2021-09-26 00:00:00 OFFICE VISIT ESTAB PT LEVEL 4 [facility]LMLC STLMLC [id number] [facility] 2021-08-28 00:00:00 2021-08-28 00:00:00 OFFICE VISIT ESTAB PT LEVEL 4 [facility]LMLC STLMLC [id number] [facility] 2021-08-19 00:00:00 2021-08-19 00:00:00 (TEL) STLMLC STLMLC [id number] [facility] 2021-08-07 00:00:00 2021-08-07 00:00:00 OFFICE VISIT ESTAB PT LEVEL 4 STLMLC STLMLC [id number] [facility] 2021-08-06 00:00:00 2021-08-06 00:00:00 (TEL) STLMLC STLMLC [id number] [facility] 2021-07-17 00:00:00 2021-07-17 00:00:00 OFFICE VISIT ESTAB PT LEVEL 4 [facility]LMLC STL[facility]C [id number] [facility] 2021-06-19 00:00:00 2021-06-19 00:00:00 (TEL) STLMLC STLMLC [id number] [facility] 2021-06-11 00:00:00 2021-06-11 00:00:00 OFFICE VISIT EST PT LEVEL 3 [facility]LMLC STLMLC [id number] [facility] 2021-05-10 00:00:00 2021-05-10 00:00:00 OFFICE VISIT EST PT LEVEL 3 [facility]LMLC STLMLC [id number] [facility] 2021-05-08 00:00:00 2021-05-08 00:00:00 Outpatient STLMLC STLMLC [id number] [facility] 2021-05-05 20:38:00 2021-05-06 00:10:00 Emergency Neris Aguilar [facility] [id number] [facility] 2021-05-05 20:38:00 2021-05-05 20:38:00 Emergency X FINNHERMILO NERIS [facility] ERT [id number] [facility] 2020-09-12 02:20:00 2020-09-12 02:20:00 Outpatient G_Pappas [facility] [id number] [facility] 2019-07-26 15:05:00 2019-07-26 15:05:[address] [facility] [id number] [facility] 2019-07-11 11:15:00 2019-07-11 11:15:[address] [facility] [id number] [facility] 2019-05-09 10:15:00 2019-05-09 10:15:[address] [facility] [id number] [facility] 2019-04-08 10:00:00 2019-04-08 10:00:00 [facility] [id number] [facility] 2019-02-28 08:53:00 2019-02-28 08:53:[address] [facility] [id number] [facility] 2019-01-10 09:45:00 2019-01-10 09:45:00 [facility] [facility] [id number] [facility] 2018-12-29 10:29:00 2018-12-29 10:29:[address] [facility] [id number] [facility] 2018-11-30 00:00:00 2018-11-30 00:00:00 Berenice Carpenter MD: [address] [facility], [address], [place] [address] , Ph. [phone] [facility] [id number] [facility] 2018-11-29 09:45:00 2018-11-29 09:45:[address] [facility] [id number] [facility] 2018-10-12 11:04:00 2018-10-12 11:04:[address] [facility] [id number] [facility] 2018-10-12 08:30:00 2018-10-12 08:30:[address] [facility] [id number] [facility] 2018-06-17 09:00:00 2018-06-17 09:00:[address] [facility] [facility] [id number] [facility] 2018-06-10 08:22:00 2018-06-10 08:22:[address] [facility] [id number] [facility] 2018-06-07 14:00:00 2018-06-07 14:00:00 [facility] [id number] [facility] 2018-05-06 09:45:00 2018-05-06 09:45:[address] [facility] [facility] [id number] [facility] 2018-04-29 08:41:00 2018-04-29 08:41:[address] [facility] [id number] [facility] 2018-04-20 13:55:00 2018-04-20 13:55:00 Outpatient [facility] [id number] [facility] 2018-04-07 11:00:00 2018-04-07 11:00:00 Outpatient [facility] [id number] [facility] Results Test Description Test Time Test Comments Results Result [id number]:07:00* Test Item Value Reference Range Interpretation Comme nts POCT PREG (test code = 1605) Negative On board controls acceptable with C Line (test code = 3574) Yes POCT PREG LOT # (test code = 3575) [id number] POCT PREG TEST DATE ( test code = 3576) [facility] History and Physical Notes Date/Time Note Provider Source 2023-06-29 20:51:36 Formatting of this n ote might be different from the original. Outpatient Preop H&P Chief Complaint: FU CT scan History of Present Illness: Patient went to the ER for abdominal pain, [facility] in [place]. Balderas dlabs that were normal. 3 months inflammation of the tongue. Pain under ribs, diarrhea x 3 weeks and mucus. [place]on liquid stools. Eating hurts. Eyes are burning. No fever. Some chills. Some dry heaves. Going about 5 times a day. Placed on Cipro and dicyclomine. Past Medical History Medical Conditions: Anemia Body piercings Tattoos Surgical Procedures: No Prior Procedures Medications: Lunesta 3 mg Trulance 3 mg TAKE ONE TABLET BY MOUTH ONCE A DAY. Vyvance Allergies: Patient has no known allergies or drug allergies Procedure(s) Performed: CT Abdomen/Pelvis, 05/05/21 CT Abdomen/Pelvis EGD, 2019 - Dr. Dinero Social History Alcohol: Occasionally. Tobacco: Never smoker Drugs: None Exercise: Regular exercise. Occasional exercise. Caffeine: Occasionally. Daily. 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 Gastrointestinal: Denies abdominal pain, abdominal swelling, change in bowel habits, constipation, diarrhea, gas, heartburn, jaundice, nausea, rectal bleeding, stomach cramps, vomiting, dysphagia, black tarry stools, belching, bloating, Rectal Pain. Impressions: Acute colitis but with ongoing diarrhea for 3 weeks and symptoms for 3 months. Labs OK in the ER. CT with right sided colitis. Concerned about IBD.Despite adding flagyl to Cipro, patient with persistent diarrhea Family history of colon cancer and relative with Crohn's disease. Plan: colonoscopy Plan: Colonoscopy with [facility] 07-01-2023 The indications, technique, alternatives, and potential risks and complications were discussed with the patient including, but not limited to, bleeding, perforation, missed lesions, and anesthesia complications. The patient understands the above, wishes to proceed and has given informed consent. Written patient education information was provided to the patient. MAC sedation required due to medical conditions documented above Preop IV orders: IV NS or LR at 50cc/hr Zuleika White MD 07/01/2023. 12:30 PM [facility] - Health Notes Date/Time Note Provider Source 2023-06-22 12:12:02 Formatting of this n ote might be different from the original. Images from the original note were not included. Your upcoming procedure is at [facility] on 07/01/23. The address is [address] [place] [address], [address].The nursing staff at [facility] will call you the workday before your procedure to let you know what time to arrive. When you arrive, please go inside and sign in at the desk. Please note: You may not travel home alone after your procedure and that includes in a taxi or by bus. We must speak to your Responsible Adult (who will be picking you up) the morning of your procedure, before the start of your procedure. This person must be an adult over the age of 18 years of age. Maintain a clear liquid diet the entire day before your procedure. Do not drink anything containing red, blue, or purple dyes. Follow the instructions of your bowel prep as directed by you physician. You may also take your medications the morning of your procedure with a sip of water as directed by physician. Anticoagulants will be per physician Guidance. Medication Note(s)/Instructions: Instructions given to hold Vyvance on morning of procedure until after procedure. Both patient and person accompanying and/or picking patient up must be able to wear a mask and be without symptoms of COVID 19. Pending screening, a COVID test may be required. If a patient tests positive, their cases are cancelled and/or rescheduled. COVID NOTE: Denies COVID symptoms or exposure, no testing required. Additional questions, concerns, requests:Provided number for [employer] for payment related questions. Patient verbalized understanding of pre-op instructions and voiced no further questions at this time. [facility]
[2024-05-30 11:35] LABS: Specific Gravity 1.015 (1.005-1.030)
[2024-05-30 11:48] LABS: Specific Gravity 1.015 (1.005-1.030); Sqamous Epithelial <5 /HPF (None Seen); Urine Bacteria None Seen /HPF (<20); Urine Bilirubin NEGATIVE (Negative); Urine Blood Negative (Negative); Urine Clarity Turbid (Clear); Urine Color Light-Yellow (Yellow); Urine Culture Reflex Order NOT NEEDED; Urine Glucose NEGATIVE (Negative); Urine Ketones 1+ (Negative); Urine Microscopic Reflex YN ORDER UMIC; Urine Mucus Slight /HPF (None Seen); Urine Nitrite NEGATIVE (Negative); Urine Protein NEGATIVE (Negative); Urine RBC <5 /HPF (None Seen); Urine Urobilinogen Normal (Normal); Urine WBC <5 /HPF (<5)
[2024-05-30] MEDS ORDERED: FAMOTIDINE 20 MG/2 ML VIAL IV ONE (12:01)
[2024-05-30] MEDS ORDERED: KETOROLAC 30 MG/ML INJ ONE ×2 (12:01→16:12)
[2024-05-30] MEDS ORDERED: ONDANSETRON 4 MG/2 ML VIAL ONE ×2 (12:01→14:01)
[2024-05-30] MEDS ORDERED: NA CHLORIDE 0.9% 1,000 ML ONE (12:02)
[2024-05-30] MEDS ORDERED: MORPHINE 4 MG/ML SYR ONE (12:38)
[2024-05-30 12:39] LABS: Absolute Eosinophils 0.3 K/uL (0-0.5); Absolute Lymphocytes (CBC) 1.5 K/uL (0.7-4.9); Absolute Monocytes 0.5 K/uL (0.1-1.3); Absolute Neutrophil 4.2 K/uL (1.8-8.0); Basophils % 0.1 % (0-1.3); Eosinophils % 4.1 % (0-4.4); Hematocrit 43.5 % (36.0-45.0); Hemoglobin 14.7 g/dL (12.0-15.0); Lymphocytes % 22.6 % (15.3-44.8); MCH 31.5 pg (27.0-35.0); MCHC 33.8 g/dL (32.0-36.0); MCV 93.2 fL (80-100); MPV 10.3 fL (7.6-11.3); Monocytes % 8.1 % (3.3-12.3); Neutrophils % 65.1 % (41.7-73.7); Nucleated Red Blood Cells % 0.1 % (0-0); Platelets 206 thou/uL (152-406); RBC Red Blood Cell Count 4.66 M/uL (3.86-4.86); Red Cell Distribution Width 13.2 % (12.1-15.2)
[2024-05-30 12:52] LABS: Albumin 3.8 g/dL (3.4-5.0); Albumin/Globulin Ratio 1.2 (1.1-1.8); Anion Gap 6.5 mEq/L (5.0-15.0); Bilirubin Total 0.6 mg/dL (0.2-1.0); Globulin 3.3 g/dL (2.3-3.5); Potassium 3.5 mEq/L (3.5-5.1); Protein, Total 7.1 g/dL (6.4-8.2)
--- NOTE | 2024-05-30 13:15 | RAD REPORT ---
EXAM DESCRIPTION: CT - Abdomen Pelvis W Contrast - 05/30/2024 12:48 pm CLINICAL HISTORY: Abdominal pain COMPARISON: 2022 TECHNIQUE: Computed axial tomography of the abdomen pelvis was obtained. 100 cc Isovue-300 was admin istered intravenously. Oral contrast was not requested which limits evaluation of bowel and appendix All CT scans are performed using dose optimization technique as appropriate and may include automated exposure control or mA/KV adjustment according to patient size. FINDINGS: The liver, spleen, pancreas, adrenal and kidneys appear unremarkable. There is no evidence of diverticulitis. Appendix mildly dilated and fluid-filled. Stranding within the adjacent fat not seen No adnexal mass. 2 centimeter irregular right ovarian cyst. No followup imaging recommended. No significant free fluid . The cyst likely has recently ruptured. IMPRESSION: Mild enlargement of the appendix may indicate appendicitis
[2024-05-30] MEDS ORDERED: NA CHLORIDE 0.9% 100 ML ONE (13:37)
[2024-05-30] MEDS ORDERED: PIPERACIL/TAZO 3.375 GM VIAL IV ONE (13:37)
--- NOTE | 2024-05-30 13:39 | ER ---
Nurse's Notes [facility] Olivia Name: Candy Kumar Age: 33 yrs Sex: Female : 1990 Arrival Date: 05/30/2024 Time: 10:55 Bed 20 Private MD: Diagnosis: Acute appendicitis with localized peritonitis Presentation: 05/30 11:15 Chief complaint: Upper abdominal pain and N/V x 2 weeks, diarrhea x 3 days.. Burning hb with urination 2 weeks ago but was unable to tolerate oral ABX. Not tolerating fluids/meds. Coronavirus screen: At this time, the client does not indicate any symptoms associated with coronavirus-19. Ebola Screen: No symptoms or risks identified at this time. Initial Sepsis Screen: Does the patient meet any 2 criteria? No. Patient's initial sepsis screen is negative. Does the patient have a suspected source of infection? No. Patient's initial sepsis screen is negative. Risk Assessment: Do you want to hurt yourself or someone else? Patient reports no desire to harm self or others. Onset of symptoms was May 16, 2024. 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 - Infectious Disease History:: Denies. - Social history:: Smoking status: Patient reports the use of cigarette tobacco products. Screenin:34 [facility] ED Fall Risk Assessment (Adult) History of falling in the last 3 months, mb9 including since admission No falls in past 3 months (0 pts) Confusion or Disorientation No (0 pts) Intoxicated or Sedated No (0 pts) Impaired Gait No (0 pts) Mobility Assist Device Used No (0 pt) Altered Elimination No (0 pt) Score/Fall Risk Level 0 - 2 = Low Risk Oriented to surroundings, Maintained a safe environment, Educated pt \T\ family on fall prevention, incl call for assistance when getting out of bed. Abuse screen: Denies threats or abuse. Nutritional screening: No deficits noted. Tuberculosis screening: No symptoms or risk factors identified. Assessment: 12:34 General: Appears uncomfortable, Behavior is cooperative, crying. Pain: Complains of mb9 pain in abdomen Pain radiates to back Pain currently is 10 out of 10 on a pain scale. Quality of pain is described as burning, Pain began suddenly. Neuro: Paredes Agitation-Sedation Scale (RASS): 0 - Alert and Calm Level of Consciousness is awake, alert, obeys commands, Oriented to person, place, time, situation, Appropriate for age. Neuro: Reports dizziness. Cardiovascular: Patient's skin is warm and dry. Respiratory: Airway is patent Respiratory effort is even, unlabored, Respiratory pattern is regular, symmetrical. GI: Abdomen is flat, non-distended, Bowel sounds present X 4 quads. Abd is soft Abdomen is tender to palpation in epigastric area and umbilical area Reports nausea. : No signs and/or symptoms were reported regarding the genitourinary system. EENT: No signs and/or symptoms were reported regarding the EENT system. Derm: Skin is pink, warm \T\ dry. Musculoskeletal: Range of motion: intact in all extremities. 13:30 Reassessment: No changes from previously documented assessment. Patient and/or family mb9 updated on plan of care and expected duration. Pain level reassessed. Patient is alert, oriented x 3, equal unlabored respirations, skin warm/dry/pink. Vital Signs: 11:15 BP 141 / 101; Pulse 93; Resp 16; Temp 98.1; Pulse Ox 100% ; Weight 76.2 kg; Height 5 hb ft. 8 in. ; Pain 7/10; 13:02 BP 121 / 93; Pulse 88; Resp 18; Pulse Ox 99% on R/A; mb9 11:15 Body Mass Index 25.54 (76.20 kg, 172.72 cm) hb 11:15 Pain Scale: Adult hb ED Course: 10:56 Patient arrived in ED. mr 11:00 [facility] Hel[facility]C [facility]. kb 11:00 Mor Dalal MD is Attending Physician. kb 11:16 Triage completed. hb 11:26 Urine collected: clean catch specimen, clear. hb 11:26 Test, Urine Sent. hb 11:26 Urinalysis w/ reflexes Sent. hb 11:56 Arm band placed on Patient placed in an exam room, on a stretcher. ll1 11:59 York, Kenisha, RN is Primary Nurse. mb9 12:32 Inserted saline lock: 20 gauge in right antecubital area, using aseptic technique. zm Blood collected. Flushed with 10 mL NS. 12:32 Initial lab(s) drawn, by me, sent to lab. zm 12:32 CBC with Diff Sent. zm 12:32 CMP Sent. zm 12:35 Bed in low position. Call light in reach. Side rails up X 1. Provided Education on: mb9 press call light if needing anything. Client placed on continuous cardiac and pulse oximetry monitoring. NIBP monitoring applied. Door closed. Noise minimized. Warm blanket given. Pillow given. 12:36 No provider procedures requiring assistance completed. mb9 12:50 CT Abd/Pelvis - IV Contrast Only In Process Unspecified. EDMS 13:00 IV discontinued, intact, bleeding controlled, No redness/swelling at site. Pressure mb9 dressing applied, IV infiltrated. 13:38 Jesus Bailey MD is Hospitalizing Provider. ec2 13:58 Missed attempt(s): 22 gauge in left antecubital area. Bleeding controlled, band aid mb9 applied, catheter tip intact. 14:12 Inserted saline lock: 22 gauge in right antecubital area, using aseptic technique. zm Flushed with 10 mL NS. Administered Medications: 12:30 Drug: Famotidine IVP 20 mg IVP once; dilute with 10 mL 0.9% NaCl; give over 2 minutes mb9 Route: IVP; Site: right antecubital; 13:03 Follow up: Response: No adverse reaction mb9 12:34 Drug: TORadol - Ketorolac IVP 15 mg IVP once Route: IVP; Site: right antecubital; mb9 13:03 Follow up: Response: No adverse reaction mb9 12:36 Drug: NS 0.9% IV 1000 ml IV at 1 bolus Per protocol; 1000 mL bolus Route: IV; Rate: 1 mb9 bolus; Site: right antecubital; 13:31 Follow up: Response: No adverse reaction; IV Status: Completed infusion mb9 12:36 Drug: Ondansetron IVP 4 mg IVP once; over 2 minutes Route: IVP; Site: right antecubital;mb9 13:03 Follow up: Response: No adverse reaction mb9 12:38 Drug: morphine IVP or IV 4 mg IVP once over 4 mins Route: IVP; Infused Over: 4 mins; mb9 Site: right antecubital; 13:30 Follow up: Response: No adverse reaction mb9 12:42 Drug: Droperidol IVP 2.5 mg IVP once Route: IVP; Site: right antecubital; mb9 13:30 Follow up: Response: No adverse reaction mb9 14:12 Drug: Piperacillin-Tazobactam IVPB 3.375 grams IVPB once over 60 mins; (mix in NS 100 mb9 mL) Route: IVPB; Infused Over: 60 mins; Site: right antecubital; 14:19 Follow up: Response: No adverse reaction; IV Status: Completed infusion mb9 Medication: 12:36 VIS not applicable for this client. mb9 Outcome: 13:38 Decision to Hospitalize by Provider. ec2 14:17 Patient left the ED. eb 14:19 Admitted to OR accompanied by nurse, Report called to Maurice mb9 14:19 Condition: stable 14:19 Instructed on the need for admit, Signatures: Dispatcher [employer] EDAshley Rushing, SANDEEP-C [employer] TECHNICIAN-Natasha Ambrosio, Reg Reg mr Gemma Umaañ, ETHEL RN Naomi Reaves Lynsay, RN RN ll1 Shu Enrique, Natasha Sharma RN RN mb9 Mor Dalal MD MD ec2
--- NOTE | 2024-05-30 13:39 | EDPHYS ---
Physician Documentation [facility] Name: Candy Hensonn Age: 33 yrs Sex: Female : 1990 Arrival Date: 05/30/2024 Time: 10:55 Bed 20 Private MD: ED Physician Mor Dalal HPI: 05/30 11:17 This 33 yrs old Female presents to ER via Ambulatory with complaints of ec2 Vomiting. 11:17 Patient arrives today for evaluation of nausea and vomiting. Patient reports that she ec2 has been having issues with nausea and vomiting ongoing for several weeks. States inability to keep p.o. down. Patient reports no cough or congestion, denies urinary complaints, reports some bouts of diarrhea. Patient reports that she is on semaglutide. 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 - Infectious Disease History:: Denies. - Social history:: Smoking status: Patient reports the use of cigarette tobacco products. ROS: 11:17 Constitutional: as per hpi ec2 Exam: 11:17 Constitutional: GEN: NAD Head: atraumatic Eyes: EOMI Ears: External ears are ec2 normal. CV: regular rate LUNGS: no respiratory distress ABD: non-distended, soft, no guarding, not rigid. SKIN: no evidence of rashes MSK: no evidence of trauma NEURO: moves all extremities equally The Vital Signs: 11:15 BP 141 / 101; Pulse 93; Resp 16; Temp 98.1; Pulse Ox 100% ; Weight 76.2 kg; Height 5 hb ft. 8 in. ; Pain 7/10; 13:02 BP 121 / 93; Pulse 88; Resp 18; Pulse Ox 99% on R/A; mb9 11:15 Body Mass Index 25.54 (76.20 kg, 172.72 cm) hb 11:15 Pain Scale: Adult hb MDM: 11:00 Patient medically screened. kb 11:17 Data reviewed: vital signs. ED course: Patient arrives today for evaluation of nausea ec2 vomiting. Examination remarkable for well-appearing nontoxic individuals otherwise in no acute distress with reassuring hemodynamics. Will obtain lab work, give the patient crystalloid as well as antiemetic. Differential includes dehydration, anemia, electrolyte disturbances.. 12:51 ED course: CBC reassuring, urine is noninfectious appearing, negative for . . ec2 13:02 ED course: Metabolic profile reassuring. . ec2 13:37 ED course: Discussed case with Dr. Wells, general surgery who recommended operative ec2 intervention. Will give the patient Zosyn, antibiotics, admit to hospitalist.. 13:38 ED course: MDM: Differential diagnosis as documented above in ED course; All lab tests ec2 ordered and reviewed as documented above; Parenteral controlled substances: Yes; Discuss inpatient hospitalization: Yes; I discussed the case with: Hospitalist, surgeon; . 05/30 11:16 Order name: CBC with Diff; Complete Time: 12:51 ec2 05/30 11:16 Order name: CMP; Complete Time: 13:02 ec2 05/30 11:16 Order name: Test, Urine; Complete Time: 12:11 ec2 05/30 11:16 Order name: Urinalysis w/ reflexes; Complete Time: 12:11 ec2 05/30 12:38 Order name: CT Abd/Pelvis - IV Contrast Only; Complete Time: 13:20 ec2 05/30 11:16 Order name: IV Saline Lock; Complete Time: 12:29 ec2 05/30 11:16 Order name: Labs collected and sent; Complete Time: 12:29 ec2 05/30 13:34 Order name: IV Start; Complete Time: 13:35 ec2 05/30 13:34 Order name: NPO; Complete Time: 13:35 ec2 Administered Medications: 12:30 Drug: Famotidine IVP 20 mg IVP once; dilute with 10 mL 0.9% NaCl; give over 2 minutes mb9 Route: IVP; Site: right antecubital; 13:03 Follow up: Response: No adverse reaction mb9 12:34 Drug: TORadol - Ketorolac IVP 15 mg IVP once Route: IVP; Site: right antecubital; mb9 13:03 Follow up: Response: No adverse reaction mb9 12:36 Drug: NS 0.9% IV 1000 ml IV at 1 bolus Per protocol; 1000 mL bolus Route: IV; Rate: 1 mb9 bolus; Site: right antecubital; 13:31 Follow up: Response: No adverse reaction; IV Status: Completed infusion mb9 12:36 Drug: Ondansetron IVP 4 mg IVP once; over 2 minutes Route: IVP; Site: right antecubital;mb9 13:03 Follow up: Response: No adverse reaction mb9 12:38 Drug: morphine IVP or IV 4 mg IVP once over 4 mins Route: IVP; Infused Over: 4 mins; mb9 Site: right antecubital; 13:30 Follow up: Response: No adverse reaction mb9 12:42 Drug: Droperidol IVP 2.5 mg IVP once Route: IVP; Site: right antecubital; mb9 13:30 Follow up: Response: No adverse reaction mb9 14:12 Drug: Piperacillin-Tazobactam IVPB 3.375 grams IVPB once over 60 mins; (mix in NS 100 mb9 mL) Route: IVPB; Infused Over: 60 mins; Site: right antecubital; 14:19 Follow up: Response: No adverse reaction; IV Status: Completed infusion mb9 Disposition Summary: 05/30/24 13:38 Hospitalization Ordered Notes: Hospitalization Status: Inpatient Admission ec2 Provider: Jesus Bailey ec2 Location: Telemetry/[facility] (Inpatient) ec2 Condition: Stable ec2 Problem: new ec2 Symptoms: have improved ec2 Bed/Room Type: Standard ec2 Room Assignment: ec2 Diagnosis - Acute appendicitis with localized peritonitis ec2 Forms: - Medication Reconciliation Form ec2 - SBAR form ec2 - Leadership Thank You Letter ec2 Signatures: Dispatcher [employer] Ashley Lee FNP-C FNP-Gemma Brar RN Natasha Tompkins RN RN mb9 Mor Dalal MD MD ec2
[2024-05-30] MEDS ORDERED: LIDOCAINE 2% MPF 5 ML VIAL ONE (14:01)
[2024-05-30] MEDS ORDERED: propofoL 200 MG/20 ML VIAL IV ONE (14:01)
[2024-05-30] MEDS ORDERED: ROCURONIUM 50 MG/5 ML VIAL IV ONE (14:01)
[2024-05-30] MEDS ORDERED: MIDAZOLAM HCL 2 MG/2 ML INJ ONE (14:02)
[2024-05-30] MEDS ORDERED: FENTANYL CITR 100 MCG/2 ML ONE ×2 (14:02→15:54)
[2024-05-30] MEDS: SUGAMMADEX SODIUM 200 MG/2 ML VIAL IV ONE (14:08)
[2024-05-30] MEDS: Ringers Lactate 1,000 ML IV ONE ×2 (14:20→16:30)
--- NOTE | 2024-05-30 15:15 | P.HP ---
Certification for Inpatient Patient admitted to: Observation With expected LOS: <2 Midnights Patient will require the following post-hospital care: None Practitioner: I am a practitioner with admitting privileges, knowledge of patient current condition, hospital course, and medical plan of care. Services: Services provided to patient in accordance with Admission requirements found in Title 42 Section 412.3 of the Code of Federal Regulations Patient History Date of Service: 05/30/24 Reason for admission: Acute appendicitis History of Present Illness: 33-year-old female with history of ADHD, depression, insomnia presented to the emergency department for 2 weeks of GI symptoms, 1 day of lower abdominal pain. She was evaluated in the emergency department and found to have acute appendicitis. General surgery was consulted and patient was brought to the OR for likely appendectomy. General surgery wishes for patient be admitted to the hospitalist service. 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 - Family History Mother -: GI disease Notes: Crohn's - Social History Alcohol use: No CD- Drugs: No Caffeine use: No Place of Residence: Home Review of Systems 10-point ROS is otherwise unremarkable Gastrointestinal: Nausea, Vomiting, Abdominal Pain, Diarrhea Physical Examination - Physical Exam General: Alert, In no apparent distress, Oriented x3 HEENT: Atraumatic, PERRLA, EOMI Neck: Supple, 2+ carotid pulse no bruit, No LAD Respiratory: Clear to auscultation bilaterally, Normal air movement Cardiovascular: Regular rate/rhythm, Normal S1 S2 Gastrointestinal: Normal bowel sounds, Tenderness Musculoskeletal: No tenderness Integumentary: No rashes Neurological: Normal speech, Normal strength at 5/5 x4 extr, Normal tone - Studies Laboratory Data (last 24 hrs) 05/30/24 05/30/24 12:29 12:29 WBC 6.50 Hgb 14.7 Hct 43.5 Plt Count 206 Sodium 137 Potassium 3.5 BUN 5 L Creatinine 0.63 Glucose 99 Total Bilirubin 0.6 AST 13 L ALT 25 Alkaline Phosphatase 55 Assessment and Plan - Plan Assessment: Acute appendicitis Insomnia ADHD Depression Plan: Acute appendicitis N.p.o., IVF, antibiotics, as needed pain medications and antiemetics Patient currently in PACU with plans of appendectomy today Further management per general surgery Insomnia Ambien continued ADHD Depression Continue home medications when verified DVT PPX:SCD Code status:Full Discharge Plan: Home Plan to discharge in: 24 Hours - Advance Directives Does patient have a Living Will: No Does patient have a Durable POA for Healthcare: No - Code Status/Comfort Care Code Status Assessed: Yes (Full code) Critical Care: No Time Spent Managing Pts Care (In Minutes): 70
[2024-05-30] MEDS ORDERED: dexAMETHasone 10 MG/ML VIAL ONE (15:26)
[2024-05-30] MEDS: NA CHLORIDE 0.9% 1,000 ML IV SCH (17:09)
[2024-05-30] MEDS: PIPER TAZO 3.375 GM in NA CHLORIDE 0.9% 100 ML IV SCH (17:09)
--- NOTE | 2024-05-30 17:17 | P.CNS ---
Date of Consult: 05/30/24 PC: I was asked to see this patient in regards to abdominal pain and possible appendicitis. HPC: Patient not feeling well for about the last 2 weeks. Has been treated for a UTI with Macrobid. Has felt nausea vomiting and abdominal pain in the upper portion of her abdomen. She told her she did not feel well and he brought her to the emergency room for evaluation and treatment. PSHx: Negative PMHx: Otherwise healthy female Social Hx: No known allergies, on Macrobid Sys R: No cough, wheeze, shortness of breath. No chest pain or palpitations. Does not have any urinary symptoms at the moment. O/E: Awake alert vital signs are stable HEENT: No jaundice Chest: Chest movement equal bilaterally Abd: Patient has minimal tenderness in the right lower quadrant but does have some mild peritoneal signs. [place]: Intact Data: CT scan suggest early appendicitis Impression: Acute abdomen with early appendicitis Plan: I will take him to the operating room for laparoscopic possible open appendectomy. The risks of this procedure have been discussed. The possibility of bleeding, infection, injury to bowel and surrounding structures were outlined. The possibility of a more malignant headaches were explained. The possible need for further surgeries and procedures was described. She understands and wants to proceed.
--- NOTE | 2024-05-30 17:21 | P.OP ---
Preoperative diagnosis: Acute abdomen with appendicitis Postoperative diagnosis: The same Primary procedure: Laparoscopic appendectomy Secondary procedure: Tap block Anesthesia: General Estimated blood loss: Less than 10 cc Specimen: 1 appendix Operative Technique: The patient brought the operating room and placed supine on the table. After the induction of adequate general endotracheal anesthesia, the area of the abdomen was prepped with a DuraPrep solution, she was draped in usual aseptic manner. Attention was turned towards the umbilicus. This was injected with 0.25% Maria R ine. A skin incision was now made. This is brought down through the skin and subcutaneous tissue. The Visiport was used to enter the peritoneal cavity and created pneumoperitoneum to approximately 12 mmHg. Under direct vision a 5 mm trocar was placed on the right lateral side of the abdomen and the other 1 between the pubic bone and the umbilical trocar. The patient was now placed in Trendelenburg. The table was air planed to the left. We could visualize the right lower quadrant. The appendix sat up very obviously from the right lower quadrant, and could be seen in the area where the patient had had mild guarding on physical exam. The base of the appendix was grasped with a grasper. There was some peritoneal attachments to the right lateral sidewall. These were taken down using Metzenbaums Metzenbaum scissors then slowly selective coagulation. The base of the appendix was identified. The linear stapler was now introduced into the peritoneal cavity. It was placed across the base of the appendix and fired. Attention was now turned towards the mesentery of the appendix. After being crushed with a grasper, we were able to place a vascular reload across the mesentery of the appendix and it was fired. The appendix having been freed was placed into an Endo Catch and brought out through the umbilical trocar site Attention was now turned towards the peritoneal cavity. No other gross pathology was noted. We were able to do a tap block with 0.25% Marcaine injecting about 8 cc on both the left and right sides. Attention was now turned towards the umbilicus. Using an Endo suture we were able to place 2 stitches at the umbilicus to approximate the fascial defect created with the optical trocar. At this point the pneumoperitoneum was collapsed, the suture tied, and ericka applied to the skin. At the end of procedure she was in a stable condition was sent to the recovery room. Needle sponge instrument count were correct. No drains were placed. Complications: None Transferred to: Recovery Room Condition: Good
[2024-05-30] MEDS ORDERED: ONDANSETRON 4 MG/2 ML VIAL IV PRN (17:35)
[2024-05-30] MEDS: MORPHINE 2 MG/ML SYR IV PRN (17:57)
[2024-05-30 18:03] VITALS: BMI 25.5
[2024-05-30] MEDS: HYDROCODONE/APAP 7.5/325 MG TAB PO PRN (21:21)
[2024-05-30] MEDS: ZOLPIDEM TARTRATE 10 MG TABLET PO PRN (22:12)
[2024-05-30 23:05] VITALS: O2SAT 98
[2024-05-31 05:57] LABS: Absolute Eosinophils 0.3 K/uL (0-0.5); Absolute Lymphocytes (CBC) 0.9 K/uL (0.7-4.9); Absolute Monocytes 0.5 K/uL (0.1-1.3); Absolute Neutrophil 6.9 K/uL (1.8-8.0); Basophils % 0.1 % (0-1.3); Eosinophils % 3.4 % (0-4.4); Hemoglobin 12.3 g/dL (12.0-15.0); Lymphocytes % 10.9 % (15.3-44.8); MCH 32.2 pg (27.0-35.0); MCHC 35.1 g/dL (32.0-36.0); MCV 91.8 fL (80-100); MPV 10.8 fL (7.6-11.3); Monocytes % 6.2 % (3.3-12.3); Neutrophils % 79.4 % (41.7-73.7); Platelets 186 thou/uL (152-406); RBC Red Blood Cell Count 3.81 M/uL (3.86-4.86); Red Cell Distribution Width 13.1 % (12.1-15.2)
[2024-05-31 06:07] LABS: Potassium 3.6 mEq/L (3.5-5.1)
[2024-05-31 06:10] LABS: Anion Gap 5.6 mEq/L (5.0-15.0)
[2024-05-31 08:01] VITALS: BP 104/69; TEMP 96.9
--- NOTE | 2024-05-31 10:58 | P.DS ---
Admission Date: 05/30/24 Discharge Date: 05/31/24 Disposition: ROUTINE DISCHARGE Discharge Condition: FAIR Reason for Admission: Acute appendicitis Vital Signs/Physical Exam: Temp Pulse Resp BP Pulse Ox 96.9 F 86 16 104/69 97 05/31/24 08:00 05/31/24 08:00 05/31/24 08:00 05/31/24 08:00 05/31/24 08:00 Laboratory Data at Discharge: WBC 8.70 thou/uL (4.3-10.9) 05/31/24 05:02 Hgb 12.3 g/dL (12.0-15.0) D 05/31/24 05:02 Hct 35.0 % (36.0-45.0) L 05/31/24 05:02 Plt Count 186 thou/uL (152-406) 05/31/24 05:02 Sodium 139 mEq/L (136-145) 05/31/24 05:02 Potassium 3.6 mEq/L (3.5-5.1) 05/31/24 05:02 BUN 4 mg/dL (7-18) L 05/31/24 05:02 Creatinine 0.66 mg/dL (0.55-1.02) 05/31/24 05:02 Glucose 123 mg/dL (74-106) H 05/31/24 05:02 Total Bilirubin 0.6 mg/dL (0.2-1.0) 05/30/24 12:29 AST 13 U/L (15-37) L 05/30/24 12:29 ALT 25 U/L (13-56) 05/30/24 12:29 Alkaline Phosphatase 55 U/L (45-117) 05/30/24 12:29 Home Medications: Cariprazine HCl [Vraylar] 1.5 mg PO DAILY 05/30/24 Dextroamphetamine/Amphetamine [Adderall 30 mg Tablet] 30 mg PO DAILY 05/30/24 Zolpidem Tartrate [Ambien] 10 mg PO BEDTIME 05/30/24 Hydrocodone 7.5/APAP 325 [[place] 7.5/325 mg*] 1 tab PO Q6H PRN #15 tab 05/31/24 New Medications: Hydrocodone 7.5/APAP 325 [[place] 7.5/325 mg*] 1 tab PO Q6H PRN #15 tab PRN Reason: Pain Scale 2-4 (Mild) Diet: Regular Activity: Ad christine Followup: NONE,NONE [Primary Care Provider] -
== END 2024-05-31 11:46 | disposition home or self-care (01) ==
LOC: ER 10:55 → ERHOLD 14:33 → 2ND 17:45
PROVIDERS: ADMIT Hospitalist; ATTEND Internal Medicine
PROC: 0DTJ4ZZ Resection of Appendix, Percutaneous Endoscopic Approach (ICD-10-PCS; principal; 2024-05-30 15:00)
DX: K35.80 Unspecified acute appendicitis (principal); R10.0 Acute abdomen; F90.9 Attention-deficit hyperactivity disorder, unspecified type; F32.A Depression, unspecified; G47.00 Insomnia, unspecified
CPT/HCPCS: 36415; 74177; 80048; 80053; 81001; 81025; 85025; 88304; 94010; 96361; 96374; 96375; 99285; G0378; J1100; J2001; J2250; J2270; J2405; J2543; J2704; J3010; J7030; J7120; Q9967